=== PATIENT | male | born 1960 | race Two or more races ===

== ENCOUNTER 2017-06-03 08:00 | Outpatient (CLI) | payer OTHER ==
[2016-10-02 12:01] VITALS: BP 146/96
[~2017-06-03 08:00] MED LIST: BENZ100C15 PO; CHLO25TA PO; FURO-69 PO; GUAI600T47 PO; HYDR-971 PO; IPRA3AMP NEB; LEVO500T59 PO; LIDO700A4 TD; LISI-334 PO; MORP30TA3 PO; POTA10TA10 PO; PRED-220 PO; SULF1TAB24 PO; [UNRECOGNIZED DRUG - OTHER]
--- NOTE | 2017-06-03 08:05 | RAD ---
EXAM: CT of the chest without intravenous contrast. HISTORY: Chronic obstructive pulmonary disease, infection. TECHNIQUE: Computed tomography of the chest was performed without intravenous contrast. COMPARISON: 06/13/2016. 12/31/2014. FINDINGS: Images of the upper abdomen reveal least mild hepatomegaly and diffuse hepatic steatosis. Bone windows reveal no suspicious lesions. There are no pathologically enlarged mediastinal or axillary lymph nodes. There is no pleural or pericardial effusion. The heart is not enlarged. 2 uncalcified nodules anteriorly in the right upper lobe on image 41-42 measure 4 mm or less and are stable since at least 12/31/2014. Tiny pleural-based nodule in the right middle lobe on image 60 is stable. A tiny intrafissural lymph node on the left on image 43 is also stable. There are no acute infiltrates. IMPRESSION: 1. No acute infiltrates. 2. Small uncalcified pulmonary nodules have been stable since at least 2014 and this likely benign. 3. Diffuse hepatic steatosis and hepatomegaly. *One or more of the following individualized dose reduction techniques were utilized for this examination: 1. Automated exposure control. 2. Adjustment of the mA and/or kV according to patient size. 3. Use of iterative reconstruction technique.
== END 2017-06-03 10:00 | disposition home or self-care (01) ==
LOC: CT 08:00
PROVIDERS: ATTEND Family Medicine
DX: J44.0 Chronic obstructive pulmonary disease with (acute) lower respiratory infection (principal); K76.0 Fatty (change of) liver, not elsewhere classified; R16.0 Hepatomegaly, not elsewhere classified; R91.8 Other nonspecific abnormal finding of lung field
CPT/HCPCS: 71250

== ENCOUNTER 2017-12-12 17:23 | Observation (INO) | payer OTHER ==
[~2017-12-12] VITALS: Ht 160 cm; Wt 117.9 kg
[~2017-12-12 17:23] MED LIST changes: -TRAM50TA PO
[2017-12-12 18:18] VITALS: BP 132/85
[2017-12-12] MEDS ORDERED: TRAM50TA PO (18:19)
[2017-12-12] MEDS ORDERED: traMADol 50 MG TABLET PO PRN (18:45)
[2017-12-12] MEDS ORDERED: IOHEXOL 300 MG/ML 75 ML VIAL. IV ONE (18:45)
[2017-12-12] MEDS ORDERED: HEPARIN 25,000UTS/500ML PREMIX 500 ML IV PRN ×2 (18:45→19:30)
[2017-12-12] MEDS ORDERED: HYDROcodone/APAP 5/325MG 1 TAB TABLET PO PRN (18:45)
[2017-12-12] MEDS ORDERED: ZOLPIDEM 5 MG TABLET. PO PRN (19:00)
[2017-12-12] MEDS ORDERED: clonazePAM 0.5 MG TABLET PO PRN (19:00)
[2017-12-12] MEDS ORDERED: DEXTROSE 50% 25 GM / 50ML DISP.SYRIN. IV PRN (19:15)
[2017-12-12 19:19] LABS: BASO # 0.1 x10^3/uL (0.0-0.2); BASO % 1 % (0-3); EOS # 0.3 x10^3/uL (0.0-0.7); EOS % 5 % (0-3); HEMATOCRIT 49.6 % (39.0-53.0); HEMOGLOBIN 16.9 g/dL (13.0-17.5); LYMPH # 2.1 x10^3/uL (1.0-4.8); LYMPH % 30 % (24-48); MEAN CORPUSCULAR HEMOGLOBIN 30 pg (25-35); MEAN CORPUSCULAR HGB CONC 34 g/dL (31-37); MEAN CORPUSCULAR VOLUME 89 fL (79-100); MONO # 0.6 x10^3/uL (0.0-1.1); MONO % 8 % (0-9); NEUT # 3.9 x10^3uL (1.8-7.7); NEUT % 56 % (31-73); PLATELET COUNT 158 x10^3/uL (140-400); RED BLOOD COUNT 5.56 x10^6/uL (4.30-5.70); RED CELL DISTRIBUTION WIDTH 13.3 % (11.5-14.5)
[2017-12-12] MEDS ORDERED: HEPARIN for IV BOLUS 10,000 UNIT/10 ML VIAL. IV ONE (19:30)
[2017-12-12] MEDS ORDERED: HEPARIN for IV BOLUS 10,000 UNIT/10 ML VIAL. IV PRN ×2 (19:30)
[2017-12-12 19:34] LABS: ALBUMIN 3.3 g/dL (3.4-5.0); ALBUMIN/GLOBULIN RATIO 0.8 (1.0-1.7); CALCIUM 9.5 mg/dL (8.5-10.1); CREATININE 1.1 mg/dL (0.7-1.3); GFR 69.2; POTASSIUM 4.4 mmol/L (3.5-5.1); TOTAL BILIRUBIN 1.1 mg/dL (0.2-1.0); TOTAL PROTEIN 7.2 g/dL (6.4-8.2)
[2017-12-12] MEDS: POTASSIUM CHLORIDE 20 MEQ TABLET.ER. PO SCH (21:09)
[2017-12-12] MEDS: INSULIN ASPART 300 UNITS/3 ML INSULN.PEN SQ SCH (21:21)
[2017-12-12] MEDS: IPRATRPIUM/ALBUTEROL 0.5/2.5MG 3 ML NEBU. NEB SCH (21:35)
--- NOTE | 2017-12-12 21:42 | EKG ---
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
[2017-12-12 22:13] LABS: BILIRUBIN,URINE NEG (NEG); CLARITY,URINE CLEAR; COLOR,URINE YELLOW; GLUCOSE,URINE >=1000 mg/dL (NEG); UROBILINOGEN,URINE 0.2 mg/dL (0.2 mg/dL)
[2017-12-12 22:14] LABS: BACTERIA,URINE 0 /HPF (0-FEW); NITRITE,URINE NEG (NEG); RBC,URINE RARE /HPF (0-2); SQUAMOUS EPITHELIAL CELL,UR OCC /LPF; WBC,URINE OCC /HPF (0-4)
[2017-12-12 22:34] VITALS: BP 129/81
--- NOTE | 2017-12-12 23:18 | RAD ---
CT angiography chest with contrast HISTORY: Left upper extremity deep venous thrombosis, chest pain. TECHNIQUE: Helical CT imaging of the chest with 3-D MIP reconstructions of the pulmonary arteries to assess for emboli with 100 mL Omnipaque 300 intravenous contrast. FINDINGS: Upper lumbar disc osteophytes contributing to severe spinal canal stenosis at L1-L2 and L2-L3. There is heterogeneous density of contrast mixed with hypodensity at the left brachiocephalic vein this is likely admixture of blood and contrast although nonocclusive thrombosis at this location cannot be excluded. 15 mm nodule posterior of the right thyroid lobe. Heart size normal. Aortic arch calcified plaque. Esophagus is unremarkable. Patent contrast of the SVC and right heart chambers. No central pulmonary artery embolus although the small peripheral lobar pulmonary arteries are under opacified limiting evaluation for small peripheral emboli. No adenopathy in the chest. Right renal midpole 3 cm hypodensity measuring 12 units consistent with a cystic lesion extends outside the [id number]. No pulmonary opacities, pleural effusions or pneumothorax. 3 mm left lower lobe nodule image 40 is stable back to 2016 considered benign. Right middle lobe nodules largest measuring 4 mm stable back to 2016 considered benign. IMPRESSION: 1. No acute process. No pulmonary artery embolus evident. See discussion above. 2. Mixed blood and contrast density at the left brachiocephalic vein as described above. 3. 15 mm nodule posterior of the right thyroid lobe could be an exophytic thyroid nodule or parathyroid adenoma. Exposure: One or more of the following individualized dose reduction techniques were utilized for this examination: 1. Automated exposure control 2. Adjustment of the mA and/or kV according to patient size 3. Use of iterative reconstruction technique Electronically signed by: Paul López MD (12/12/2017 11:15 PM) [facility] [place]
[2017-12-13 03:27] LABS: ALBUMIN/GLOBULIN RATIO 0.8 (1.0-1.7); CREATININE 0.9 mg/dL (0.7-1.3); GFR 87.3; POTASSIUM 3.7 mmol/L (3.5-5.1); TOTAL BILIRUBIN 1.1 mg/dL (0.2-1.0); TOTAL PROTEIN 6.7 g/dL (6.4-8.2)
[2017-12-13 03:53] VITALS: BP 126/85
[2017-12-13 04:05] LABS: BASO # 0.1 x10^3/uL (0.0-0.2); BASO % 1 % (0-3); EOS # 0.4 x10^3/uL (0.0-0.7); EOS % 5 % (0-3); HEMOGLOBIN 16.5 g/dL (13.0-17.5); LYMPH # 3.1 x10^3/uL (1.0-4.8); LYMPH % 42 % (24-48); MEAN CORPUSCULAR HEMOGLOBIN 30 pg (25-35); MEAN CORPUSCULAR HGB CONC 34 g/dL (31-37); MEAN CORPUSCULAR VOLUME 89 fL (79-100); MONO # 0.6 x10^3/uL (0.0-1.1); MONO % 9 % (0-9); NEUT # 3.2 x10^3uL (1.8-7.7); NEUT % 43 % (31-73); PLATELET COUNT 150 x10^3/uL (140-400); RED CELL DISTRIBUTION WIDTH 13.4 % (11.5-14.5); WHITE BLOOD COUNT 7.4 x10^3/uL (4.0-11.0)
[2017-12-13 05:37] VITALS: BP 111/72
[2017-12-13] MEDS: IPRATRPIUM/ALBUTEROL 0.5/2.5MG 3 ML NEBU. NEB SCH ×2 (05:51→12:00)
[2017-12-13] MEDS: POTASSIUM CHLORIDE 20 MEQ TABLET.ER. PO SCH (08:29)
[2017-12-13] MEDS: INSULIN ASPART 300 UNITS/3 ML INSULN.PEN SQ SCH ×2 (08:38→12:22)
[2017-12-13] MEDS ORDERED: FUROSEMIDE 20 MG TABLET PO SCH (09:00)
[2017-12-13] MEDS ORDERED: LISINOPRIL 20 MG TABLET PO SCH (09:00)
[2017-12-13 11:05] VITALS: BP 123/82
--- NOTE | 2017-12-13 12:19 | RAD ---
Bilateral lower extremity venous duplex ultrasound. 12/13/2017 12:15 PM Indication: Patient with recent DVT, left upper extremity. Comparison study: None Discussion: Sonographic evaluation of the deep veins of the bilateral lower extremities was performed. This includes grayscale imaging and color duplex imaging with spectral analysis. No evidence of deep venous thrombosis is seen. Interrogated veins are compressible and demonstrate augmentable blood flow and color Doppler imaging. Impression: No evidence of deep venous thrombosis involving either lower extremity.
--- NOTE | 2017-12-13 14:12 | PDOC2 ---
CONSULT Date of Admission DATE: 12/13/17 TIME: 14:12 Reason for Consult: Chest pain Chief Complaint Chest pain and left upper extremity pain Source: Patient History of Present Illness 57-year-old male presented complaining of left-sided chest pain and upper extremity pain. He was diagnosed with left brachial vein thrombosis and admitted for further management. The chest pain did described appeared to be atypical and not related to exertion or food intake. He denied any orthopnea/PND , palpitations or syncope. Past Medical History Deep venous thrombosis Hypertension COPD Social History Patient quit smoking several years ago and denied any alcohol or drug abuse Current Medications Current Medications Heparin Sodium/ Dextrose 500 ml @ 0 mls/hr CONT PRN IV SEE I/O RECORD; Start at 18:45; Stop 12/12/17 at 19:37; Status DC Furosemide (Lasix) 20 mg DAILY PO Last administered on 12/13/17at 08:30; Start 12/13/17 at 09:00 Acetaminophen/ Hydrocodone Bitart (Lortab 5/325) 1 tab PRN Q6HRS PRN PO PAIN Last administered on 12/12/17at 19:41; Start 12/12/17 at 18:45 Albuterol/ Ipratropium (Duoneb) 3 ml RTQID NEB Last administered on 12/13/17at 12:00; Start 12/12/17 at 20:00 Lisinopril (Prinivil) 20 mg DAILY PO Last administered on 12/13/17 08:31; Start 12/13/17 at 09:00 Tramadol HCl (Ultram) 50 mg PRN Q6HRS PRN PO PAIN Last administered on at 21:09; Start 12/12/17 at 18:45 Potassium Chloride (Klor-Con) 20 meq BID PO Last administered on 12/13/17 08: 29; Start 12/12/17 at 21:00 Iohexol (Omnipaque 300 Mg/ml) 75 ml 1X ONCE IV Last administered on 12/12/17 20:31; Start 12/12/17 at 18:45; Stop 12/12/17 at 18:46; Status DC Zolpidem Tartrate (Ambien) 5 mg PRN QHS PRN PO INSOMNIA, MAY REPEAT IN 1HR; Start 12/12/17 at 19:00 Clonazepam (KlonoPIN) 0.5 mg TID PRN PRN PO ANXIETY / AGITATION Last administered on 12/12/17at 21:09; Start 12/12/17 at 19:00 Insulin Aspart (NovoLOG) 0-7 UNITS QIDACHS SQ Last administered on 12/13/17at 12 :22; Start 12/12/17 at 21:00 Dextrose 12.5 gm PRN Q15MIN PRN IV SEE COMMENTS; Start 12/12/17 at 19:15 Heparin Sodium/ Dextrose 500 ml @ 0 mls/hr CONT PRN IV SEE I/O RECORD Last administered on 12/12/17at 21:02; Start 12/12/17 at 19:30 Heparin Sodium (Porcine) (Heparin Sodium) 8,000 unit 1X ONCE IV Last administered on 12/12/17at 21:00; Start 12/12/17 at 19:30; Stop 12/12/17 at 19:54; Status DC Heparin Sodium (Porcine) (Heparin Sodium) 2,000 unit PRN Q6HRS PRN IV FOLLOW PROTOCOL GUIDELINES; Start 12/12/17 at 19:30 Heparin Sodium (Porcine) (Heparin Sodium) 1,000 unit PRN Q6HRS PRN IV FOLLOW PROTOCOL GUIDELINES; Start 12/12/17 at 19:30 Active Scripts Active [place] 5-325 Tablet (Hydrocodone Bit/Acetaminophen) 1 Each Tablet 1 Tab PO PRN Q6HRS PRN Duoneb 0.5-3(2.5) Mg/3 Ml (Albuterol/Ipratropium) 3 Ml Ampul.neb 3 Ml NEB RTQID Reported Tramadol Hcl (Tramadol HCl) 50 Mg Tablet 50 Mg PO PRN Q6HRS PRN Lasix (Furosemide) 20 Mg Tablet 20 Mg PO DAILY LAST DOSE THIS MORNING NEXT DOSE TOMORROW Potassium Chloride 10 Meq Tablet.er 20 Meq PO BID LAST DOSE THIS MORNING NEXT DOSE TONIGHT Lisinopril 20 Mg Tablet 20 Mg PO DAILY LAST DOSE THIS MORNING NEXT DOSE TOMORROW Allergies: Coded Allergies: oxycodone (Verified Allergy, Intermediate, lost hearing temporaily, ) PSYCHOLOGICAL ROS: No: Hallucinations Eyes: No: Loss of vision HEENT: No: Epistaxis Respiratory: No: Hemoptysis Cardiovascular: yes: Chest Pain Gastrointestinal: No: Melena Neurological: No: Seizures Skin: No: Rash General: Alert, Oriented X3 HEENT: Atraumatic, PERRLA Lungs: Clear to auscultation Heart: Regular rate Abdomen: Soft, No tenderness Extremities: No edema Psych/Mental Status: Mood NL VITALS Vital Signs Date Time Temp Pulse Resp B/P (MAP) Pulse Ox O2 Delivery O2 Flow Rate FiO2 12/13/17 12:00 97 Room Air 12/13/17 11:05 97.9 67 20 123/82 (96) Labs Laboratory Tests Test 12/12/17 19:00 12/12/17 19:55 12/12/17 20:23 12/12/17 20:30 White Blood Count 7.0 x10^3/uL (4.0-11.0) Red Blood Count 5.56 x10^6/uL (4.30-5.70) Hemoglobin 16.9 g/dL (13.0-17.5) Hematocrit 49.6 % (39.0-53.0) Mean Corpuscular Volume 89 fL (79-100) Mean Corpuscular Hemoglobin 30 pg (25-35) Mean Corpuscular Hemoglobin Concent 34 g/dL (31-37) Red Cell Distribution Width 13.3 % (11.5-14.5) Platelet Count 158 x10^3/uL (140-400) Neutrophils (%) (Auto) 56 % (31-73) Lymphocytes (%) (Auto) 30 % (24-48) Monocytes (%) (Auto) 8 % (0-9) Eosinophils (%) (Auto) 5 % (0-3) Basophils (%) (Auto) 1 % (0-3) Neutrophils # (Auto) 3.9 x10^3uL (1.8-7.7) Lymphocytes # (Auto) 2.1 x10^3/uL (1.0-4.8) Monocytes # (Auto) 0.6 x10^3/uL (0.0-1.1) Eosinophils # (Auto) 0.3 x10^3/uL (0.0-0.7) Basophils # (Auto) 0.1 x10^3/uL (0.0-0.2) Sodium Level 135 mmol/L (136-145) Potassium Level 4.4 mmol/L (3.5-5.1) Chloride Level 100 mmol/L (98-107) Carbon Dioxide Level 27 mmol/L (21-32) Anion Gap 8 (6-14) Blood Urea Nitrogen 18 mg/dL (8-26) Creatinine 1.1 mg/dL (0.7-1.3) Estimated GFR (Cockcroft-Gault) 69.2 BUN/Creatinine Ratio 16 (6-20) Glucose Level 495 mg/dL (70-99) Lactic Acid Level 1.8 mmol/L (0.4-2.0) Calcium Level 9.5 mg/dL (8.5-10.1) Total Bilirubin 1.1 mg/dL (0.2-1.0) Aspartate Amino Transf (AST/SGOT) 34 U/L (15-37) Alanine Aminotransferase (ALT/SGPT) 71 U/L (16-63) Alkaline Phosphatase 128 U/L (46-116) Troponin I Quantitative < 0.017 ng/mL (0-0.055) Total Protein 7.2 g/dL (6.4-8.2) Albumin 3.3 g/dL (3.4-5.0) Albumin/Globulin Ratio 0.8 (1.0-1.7) Prothrombin Time 9.9 SEC (9.4-11.4) Prothromb Time International Ratio 1.0 (0.9-1.1) Activated Partial Thromboplast Time 25 SEC (23-33) Glucose (Fingerstick) 368 mg/dL (70-99) Urine Collection Type Unknown Urine Color Yellow Urine Clarity Clear Urine pH 5.5 Urine Specific [place] 1.010 Urine Protein Neg (NEG-TRACE) Urine Glucose (UA) >=1000 mg/dL (NEG) Urine Ketones (Stick) Neg mg/dL (NEG) Urine Blood Trace (NEG) Urine Nitrite Neg (NEG) Urine Bilirubin Neg (NEG) Urine Urobilinogen Dipstick 0.2 mg/dL (0.2 mg/dL) Urine Leukocyte Esterase Neg (NEG) Urine RBC Rare /HPF (0-2) Urine WBC Occ /HPF (0-4) Urine Squamous Epithelial Cells Occ /LPF Urine Bacteria 0 /HPF (0-FEW) Test 12/13/17 03:02 12/13/17 07:35 12/13/17 10:44 12/13/17 11:43 White Blood Count 7.4 x10^3/uL (4.0-11.0) Red Blood Count 5.50 x10^6/uL (4.30-5.70) Hemoglobin 16.5 g/dL (13.0-17.5) Hematocrit 49.0 % (39.0-53.0) Mean Corpuscular Volume 89 fL (79-100) Mean Corpuscular Hemoglobin 30 pg (25-35) Mean Corpuscular Hemoglobin Concent 34 g/dL (31-37) Red Cell Distribution Width 13.4 % (11.5-14.5) Platelet Count 150 x10^3/uL (140-400) Neutrophils (%) (Auto) 43 % (31-73) Lymphocytes (%) (Auto) 42 % (24-48) Monocytes (%) (Auto) 9 % (0-9) Eosinophils (%) (Auto) 5 % (0-3) Basophils (%) (Auto) 1 % (0-3) Neutrophils # (Auto) 3.2 x10^3uL (1.8-7.7) Lymphocytes # (Auto) 3.1 x10^3/uL (1.0-4.8) Monocytes # (Auto) 0.6 x10^3/uL (0.0-1.1) Eosinophils # (Auto) 0.4 x10^3/uL (0.0-0.7) Basophils # (Auto) 0.1 x10^3/uL (0.0-0.2) Activated Partial Thromboplast Time 71 SEC (23-33) 38 SEC (23-33) Sodium Level 137 mmol/L (136-145) Potassium Level 3.7 mmol/L (3.5-5.1) Chloride Level 101 mmol/L (98-107) Carbon Dioxide Level 26 mmol/L (21-32) Anion Gap 10 (6-14) Blood Urea Nitrogen 16 mg/dL (8-26) Creatinine 0.9 mg/dL (0.7-1.3) Estimated GFR (Cockcroft-Gault) 87.3 BUN/Creatinine Ratio 18 (6-20) Glucose Level 295 mg/dL (70-99) Calcium Level 9.0 mg/dL (8.5-10.1) Total Bilirubin 1.1 mg/dL (0.2-1.0) Aspartate Amino Transf (AST/SGOT) 28 U/L (15-37) Alanine Aminotransferase (ALT/SGPT) 64 U/L (16-63) Alkaline Phosphatase 103 U/L (46-116) Total Protein 6.7 g/dL (6.4-8.2) Albumin 3.0 g/dL (3.4-5.0) Albumin/Globulin Ratio 0.8 (1.0-1.7) Glucose (Fingerstick) 249 mg/dL (70-99) 333 mg/dL (70-99) Troponin I Quantitative < 0.017 ng/mL (0-0.055) Assessment/Plan 1. Chest pain with atypical features: Myocardial infarction has been ruled out. 2-D echo in 2016 showed normal LV function. Plan for Lexiscan nuclear stress test as an outpatient. 2. Left upper extremity DVT: Treated per IM 3. Hypertension: Controlled 4. COPD: Continue current management Thank you for your consultation Problems: CHEN MONTENEGRO MD Dec 13, 2017 14:12
[2017-12-14 01:12] LABS: HEMOGLOBIN A1C 12.3 % (4.8-5.6)
== END 2017-12-13 16:08 | disposition home or self-care (01) ==
LOC: INTOOBSV 17:23 → 1 SOUTH 17:23
PROVIDERS: ADMIT Family Medicine; ATTEND Family Medicine
DX: I82.622 Acute embolism and thrombosis of deep veins of left upper extremity (principal); J44.9 Chronic obstructive pulmonary disease, unspecified; R07.89 Other chest pain; I10 Essential (primary) hypertension; R20.2 Paresthesia of skin; R22.32 Localized swelling, mass and lump, left upper limb; Z03.89 Encounter for observation for other suspected diseases and conditions ruled out; Z87.891 Personal history of nicotine dependence
CPT/HCPCS: 36415; 71275; 80053; 81001; 81240; 82947; 83036; 83605; 84484; 85025; 85220; 85610; 85730; 93005; 93970; 94640; 96365; 96366; 96372; 96375; G0378; G0379; J1644; J1815; J7620; Q9967

== ENCOUNTER → 2017-12-12 | Outpatient (CLI) | payer OTHER ==
[2016-10-02 12:01] VITALS: BP 146/96
[~2017-12-12] MED LIST changes: +BENZ-8 PO; -BENZ100C15 PO; +TRAM50TA PO
--- NOTE | 2017-12-12 17:00 | RAD ---
Indication: Left thumb pain and swelling. TECHNIQUE: Grayscale, color Doppler and spectral waveform images of the left upper extremity. COMPARISON: None FINDINGS: The internal jugular vein is compressible and demonstrates evidence of blood flow. The subclavian vein demonstrates evidence of blood flow. The axillary vein demonstrates evidence of blood flow. The cephalic vein is compressible and demonstrates evidence of blood flow. Basilic vein is compressible and demonstrates evidence of blood flow. Brachial vein is partially compressible with internal hypoechoic filling defect and lacks evidence of blood flow. The radial and ulnar veins are compressible. IMPRESSION: Sonographic evidence of DVT in the brachial vein. The results were discussed with Dr. Harkins on 12/12/2017 at 4:50 p.m by vascular technologist. Electronically signed by: Rickie Uribe DO (12/12/2017 4:57 PM) [facility]
== END | disposition home or self-care (01) ==
LOC: US 15:57
PROVIDERS: ATTEND Family Medicine
DX: I82.622 Acute embolism and thrombosis of deep veins of left upper extremity (principal)
CPT/HCPCS: 93971

== ENCOUNTER → 2018-01-12 | Outpatient (CLI) | payer OTHER ==
[2017-12-13 11:05] VITALS: BP 123/82
[~2018-01-12] MED LIST changes: +IOHEXOL 240 MG/ML 50ML VIAL. ONE; +IOHEXOL 240 MG/ML 50ML VIAL. PO ONE; +IOHEXOL 300 MG/ML 75 ML VIAL. IV ONE; +TRAM50TA PO
--- NOTE | 2018-01-12 15:36 | RAD ---
Thyroid ultrasound, 01/12/2018: HISTORY: Thyroid nodule on CT scan The right lobe of the gland measures 3.9 x 1.1 x 1.4 cm while the left lobe of the gland measures 4.1 x 1.2 x 1.2 cm. There is a 1.1 x 1.1 x 0.6 cm nodule in the posterior lateral aspect of the midportion of the right lobe of the gland. It is predominately isoechoic with a hypoechoic rim. Its margins are smooth. There is internal color flow compatible with a solid nodule. It is wider than tall. No calcifications or particularly suspicious features are seen. No other thyroid abnormality is evident. IMPRESSION: Single small right thyroid nodule considered by ACR TI-RADS criteria to be TR 3-mildly suspicious. Sonographic follow-up is not required. Electronically signed by: Adelso Tolbert MD (01/12/2018 3:32 PM) [facility]
--- NOTE | 2018-01-12 16:17 | RAD ---
PQRS Compliance Statement: One or more of the following individualized dose reduction techniques were utilized for this examination: 1. Automated exposure control 2. Adjustment of the mA and/or kV according to patient size 3. Use of iterative reconstruction technique CT abdomen/pelvis with contrast 01/12/2018 3:36 PM INDICATION: Weight loss COMPARISON: None available TECHNIQUE: Multiple axial CT images of the abdomen and pelvis were obtained after the intravenous administration of 75 mL Omnipaque 300. Coronal and sagittal reformats are provided. FINDINGS: Lung bases are clear. Heart size is within normal limits. There is hypoattenuation of the hepatic parenchyma suggestive of hepatic steatosis. No suspicious hepatic mass is visualized. Portal veins are patent. Spleen is nonenlarged. Adrenal glands are normal in appearance. No suspicious pancreatic lesion is identified. Gallbladder is present and contracted. The abdominal aorta is normal in course and caliber. There are no pathologically enlarged lymph nodes in the abdomen and pelvis. There is no abdominal free fluid. There is no free intraperitoneal air. There is a fat-containing umbilical hernia measuring 2.7 cm at the neck. There is a 9 mm hypodense lesion in the lateral midpole the left kidney which is too small to characterize, however statistically favor to represent a simple cyst. There is a 2.6 cm cyst in the posterior midpole of the right kidney. The kidneys enhance symmetrically. There is no hydronephrosis. There are no suspected calculi within the kidneys, ureters or urinary bladder. Mild scattered diverticulosis of the colon. Oral contrast was administered. Opacified bowel loops demonstrate normal mucosal fold pattern. Small and large bowel are normal in caliber. There is no evidence for bowel obstruction. There are no pericolonic inflammatory changes. A normal, nondilated appendix is visualized without adjacent inflammatory changes. The urinary bladder is within normal limits given degree of distention. Prostate and seminal vesicles are normal in appearance. No suspicious pelvic masses are identified. There are no suspicious osseous lesions identified. IMPRESSION: 1. There is diffuse hepatic steatosis. 2. Indeterminate 9 mm hypodense lesion in the lateral midpole the left kidney, which is too small to characterize. Further evaluation with renal ultrasound may be of benefit. 3. Small fat-containing of vocal hernia measuring 2.7 cm at the neck. 4. Mild scattered diverticulosis without adjacent inflammatory changes. Electronically signed by: Ingrid Serna MD (01/12/2018 4:14 PM) [facility]
== END | disposition home or self-care (01) ==
LOC: US 14:27
PROVIDERS: ATTEND Nurse Practitioner Family
DX: E04.1 Nontoxic single thyroid nodule (principal); K76.0 Fatty (change of) liver, not elsewhere classified; K42.9 Umbilical hernia without obstruction or gangrene; R63.4 Abnormal weight loss
CPT/HCPCS: 74177; 76536; Q9966; Q9967

== ENCOUNTER → 2018-03-17 | Outpatient (CLI) | payer OTHER ==
[~2018-03-17] MED LIST changes: -IOHEXOL 240 MG/ML 50ML VIAL. ONE; -IOHEXOL 240 MG/ML 50ML VIAL. PO ONE; -IOHEXOL 300 MG/ML 75 ML VIAL. IV ONE; -IPRA3AMP NEB; +IPRA3AMP29 NEB
--- NOTE | 2018-03-17 13:04 | RAD ---
ABDOMEN LTD History: Right upper quadrant pain, nausea, epigastric pain for 4 days Comparison: None. Findings: Multiple sonographic images of the abdomen are submitted. There is coarsening of the hepatic echotexture. Right lobe of liver measured 19.4 cm longitudinal. Pancreas and inferior vena cava are poorly visualized due to bowel gas and patient's body habitus. There is no significant abnormality of the visualized pancreas and there is segmental visualization of the inferior vena cava. Gallbladder is present without intraluminal abnormality, wall thickening, pericholecystic fluid. Common bile duct is within normal limits at 0.5 cm. Right kidney measured 12.8 x 6.2 x 5.4 cm, no hydronephrosis. There is a hypoechoic lesion of the superior right kidney 2.9 x 3.5 x 2.8 cm, increased through transmission. Impression: 1. Other than likely hepatic steatosis and right renal cyst, no significant abnormality is demonstrated. Electronically signed by: Martin Fleming MD (03/17/2018 1:01 PM) [id number]
== END | disposition home or self-care (01) ==
LOC: US 09:34
PROVIDERS: ATTEND Nurse Practitioner Family
DX: R10.11 Right upper quadrant pain (principal); R11.0 Nausea; R10.13 Epigastric pain; I11.0 Hypertensive heart disease with heart failure; I50.9 Heart failure, unspecified; J44.9 Chronic obstructive pulmonary disease, unspecified; E03.9 Hypothyroidism, unspecified
CPT/HCPCS: 76705

== ENCOUNTER 2018-05-24 15:45 | Emergency (ER) | payer OTHER ==
[~2018-05-24] VITALS: Ht 160 cm; Wt 134.3 kg
[~2018-05-24 15:45] MED LIST changes: +FENO54TA PO; +FURO40TA4 PO; +GUAI-108 PO; +HYDR-2762 PO; +INSU100I11 SQ; +INSU100I30 SQ; +LIRA0.6P SQ; +METH4TAB6; +PRED1TAB PO; +RIVA10TA PO
[2018-05-24] MEDS ORDERED: FLUORESCEIN 1MG EYE STRIP. OD ONE (16:30)
[2018-05-24] MEDS ORDERED: TETRACAINE 0.5% OPHTH SOLUTION 4ML BOTTLE. OD ONE (16:30)
[2018-05-24] MEDS ORDERED: IOHEXOL 300 MG/ML 75 ML VIAL. IV ONE (17:15)
--- NOTE | 2018-05-24 17:56 | RAD ---
Head CT, With and Without Contrast: History: Eye pain history of clots. Technique: Axial images were obtained before and after the administration of 75 cc of IV Isovue-370 contrast. Findings: The archer and white matter appear normal and symmetrical for the patient's age. There is no mass effect, extraaxial fluid collections or hydrocephalus. There is no gross bleed. There is no abnormal enhancement.There is no focal loss of archer-white matter distinction to suggest acute ischemia, i.e. stroke. Impression: No acute findings. Electronically signed by: Guido Beatty III, MD (05/24/2018 5:53 PM) [facility]
--- NOTE | 2018-05-24 18:08 | PHYS DOC ---
Past History Past Medical History: Diabetes, DVT, High Cholesterol, Hypertension Past Surgical History: No Surgical History Alcohol Use: None Drug Use: None Adult General Chief Complaint Chief Complaint: HEADACHE HPI HPI 57 yo male presents with left eye pain. The patient states that he has had a sharp pressure sensation in the left eye that started 3 days ago. It was mild but has been increasing today. Today it is very painful he rates it an 8 out of 10. He does have times where it subsides, but then comes back. He denies any trauma or chance of foreign body. He has never had anything like this before. He denies nausea, vomiting, fever, chills. He does have a headache on that side of his head. His PCP advised to come to the emergency room as he slashed she was very concerned. Review of Systems Review of Systems Constitutional: Denies fever or chills [] Eyes: Left eye pain[] HENT: Denies nasal congestion or sore throat [] Respiratory: Denies cough or shortness of breath [] Cardiovascular: No additional information not addressed in HPI [] GI: Denies abdominal pain, nausea, vomiting, bloody stools or diarrhea [] : Denies dysuria or hematuria [] Musculoskeletal: Denies back pain or joint pain [] Integument: Denies rash or skin lesions [] Neurologic: Denies headache, focal weakness or sensory changes [] Endocrine: Denies polyuria or polydipsia [] All other systems were reviewed and found to be within normal limits, except as documented in this note. Current Medications Current Medications Current Medications Medications (Trade) Dose Ordered Sig/Tess Start Time Stop Time Status Last Admin Dose Admin Fluorescein Sodium (Ful-Delilah 1mg) 1 strip 1X ONCE 05/24/18 16:30 05/24/18 16:32 DC 05/24/18 16:30 1 STRIP Iohexol (Omnipaque 300 Mg/ml) 75 ml 1X ONCE 05/24/18 17:15 05/24/18 17:16 DC 05/24/18 17:28 75 ML Tetracaine HCl (Tetracaine) 1 drop 1X ONCE 05/24/18 16:30 05/24/18 16:32 DC 05/24/18 16:30 1 DROP Allergies Allergies Allergies Coded Allergies Type Severity Reaction Last Updated Verified oxycodone Allergy Intermediate lost hearing temporaily 12/30/16 Yes Physical Exam Physical Exam Constitutional: Well developed, well nourished, no acute distress, non-toxic appearance. [] HENT: Normocephalic, atraumatic, bilateral external ears normal, oropharynx moist, no oral exudates, nose normal. [] Eyes: PERRLA, EOMI, conjunctiva normal, no discharge. Funduscopic exam was limited with no pupil dilation, but there were no abnormal findings.[] Neck: Normal range of motion, no tenderness, supple, no stridor. [] Cardiovascular:Heart rate regular rhythm, no murmur [] Lungs & Thorax: Bilateral breath sounds clear to auscultation [] Abdomen: Bowel sounds normal, soft, no tenderness, no masses, no pulsatile masses. [] Skin: Warm, dry, no erythema, no rash. [] Back: No tenderness, no CVA tenderness. [] Extremities: No tenderness, no cyanosis, no clubbing, ROM intact, no edema. [] Neurologic: Alert and oriented X 3, normal motor function, normal sensory function, no focal deficits noted. [] Psychologic: Affect normal, judgement normal, mood normal. [] Current Patient Data Vital Signs Vital Signs Date Time Temp Pulse Resp B/P (MAP) Pulse Ox O2 Delivery O2 Flow Rate FiO2 05/24/18 17:16 89 18 153/65 (94) 98 Room Air 05/24/18 16:03 98.4 EKG EKG [] Radiology/Procedures Radiology/Procedures [] Impressions: Head CT, With and Without Contrast: History: Eye pain history of clots. Technique: Axial images were obtained before and after the administration of 75 cc of IV Isovue-370 contrast. Findings: The archer and white matter appear normal and symmetrical for the patient's age. There is no mass effect, extraaxial fluid collections or hydrocephalus. There is no gross bleed. There is no abnormal enhancement.There is no focal loss of archer-white matter distinction to suggest acute ischemia, i.e. stroke. Impression: No acute findings. Electronically signed by: Sonia Funk III, MD (05/24/2018 5:53 PM) [facility] DICTATED AND SIGNED BY: SONIA FUNK III, MD DATE: 05/24/18 [id number] CC: KRISSY LE DO; BILLY BENITEZ MD Course & Med Decision Making Course & Med Decision Making Pertinent Labs and Imaging studies reviewed. (See chart for details) His head CT is unremarkable. The fluoresceins stain of his cornea did not reveal any foreign bodies or abrasions. His jody pen exam showed pressure between 10 and 15. The patient continues to have pain. I will treat his pain with oral medication. I have also advised that he call an opthamologist for follow-up as soon as possible. I will provide contact information for Dr. Godfrey and Dr. Doherty. The patient will be discharged with [place] 5/325 for pain. He is stable for discharge at this time. [] Dragon Disclaimer Dragon Disclaimer This electronic medical record was generated, in whole or in part, using a voice recognition dictation system. Departure Departure: Referrals: BILLY BENITEZ MD (PCP) Scripts Hydrocodone Bit/Acetaminophen ([place] 5-325 TABLET) 1 Each Tablet 1 TAB PO PRN Q6HRS PRN for PAIN, #10 TAB 0 Refills Prov: KRISSY LE DO 05/24/18 KRISSY LE DO May 24, 2018 18:08
[2018-05-24] MEDS ORDERED: HYDR-971 PO (18:23)
[2018-05-24 18:26] VITALS: BP 145/78
[2018-05-24] MEDS ORDERED: HYDROcodone/APAP 5/325MG 1 TAB TABLET PO ONE (18:30)
== END 2018-05-24 18:35 | disposition home or self-care (01) ==
LOC: ER 15:45
DX: H57.12 Ocular pain, left eye (principal); R51 Headache; E11.9 Type 2 diabetes mellitus without complications; I10 Essential (primary) hypertension; E78.00 Pure hypercholesterolemia, unspecified; Z86.718 Personal history of other venous thrombosis and embolism; Z88.5 Allergy status to narcotic agent
CPT/HCPCS: 70470; 99284; Q9967

== ENCOUNTER → 2018-07-11 | Outpatient (CLI) | payer OTHER ==
--- NOTE | 2018-07-11 13:28 | RAD ---
Right lower extremity venous Doppler dated 07/11/2018. No comparison available. Clinical data indication: Knee pain. History of pulmonary embolus. FINDINGS: Grayscale, color-flow and spectral waveform analysis performed to include the deep venous system of the right lower extremity. Normal compressibility, phasicity and augmentation of flow throughout. No filling defects are seen. There is a small pocket of fluid along the lateral aspect of the knee the measures up to 10 mm in size, nonspecific. IMPRESSION: 1. No evidence of right lower extremity deep vein thrombosis. Electronically signed by: Bowen Chicas MD (07/11/2018 1:25 PM) [facility]
== END | disposition home or self-care (01) ==
LOC: US 10:31
PROVIDERS: ATTEND Nurse Practitioner Family
DX: M79.661 Pain in right lower leg (principal); M79.604 Pain in right leg; J44.9 Chronic obstructive pulmonary disease, unspecified; Z86.711 Personal history of pulmonary embolism
CPT/HCPCS: 93971

== ENCOUNTER 2019-01-12 20:51 | Emergency (ER) | payer OTHER ==
[~2019-01-12] VITALS: Ht 160 cm; Wt 126.1 kg
[~2019-01-12 20:51] MED LIST changes: -CHLO25TA PO; +CHLO25TA9 PO; -HYDR-2762 PO; +HYDR-2765 PO; +HYDR-3165 PO; -HYDR-971 PO
[2019-01-12] MEDS ORDERED: diclofenac (21:03)
[2019-01-12] MEDS ORDERED: [UNRECOGNIZED DRUG - OTHER] (21:06)
[2019-01-12] MEDS ORDERED: ALBU2.5V8 INH (21:06)
[2019-01-12] MEDS ORDERED: vitaminD3 PO (21:06)
--- NOTE | 2019-01-12 21:28 | PHYS DOC ---
Past History Past Medical History: Diabetes, DVT, High Cholesterol, Hypertension Past Surgical History: No Surgical History Alcohol Use: None Drug Use: None Adult General Chief Complaint Chief Complaint: NOSEBLEED [facility] HPI 58-year-old male presents via EMS with nosebleed. The patient began have a nosebleed around 2019. He states that it took him about 30 minutes to get the nosebleed to stop. Patient had some coughing of blood and is unsure if that was coming from his nose or deeper. The patient is on Xarelto due to history of DVTs and PE in the past. Most recent was one year ago. The patient did not apply direct pressure to the nose. He mostly just used tissues to absorb the bleeding underneath his nose. He did not use Afrin or another vasoconstrictor. Bleeding was stopped prior to EMS arrival. He's had no further bleeding since that time. The patient has not had a nosebleed this bad in the past. He's not sure is ever had a nosebleed on Xarelto. He is not feeling lightheaded or dizzy. He denies other concerns or complaints. Review of Systems Review of Systems Constitutional: Denies fever or chills [] Eyes: Denies change in visual acuity, redness, or eye pain [] HENT: Denies nasal congestion or sore throat. Nosebleed[] Respiratory: Denies cough or shortness of breath [] Cardiovascular: No additional information not addressed in HPI [] GI: Denies abdominal pain, nausea, vomiting, bloody stools or diarrhea [] : Denies dysuria or hematuria [] Musculoskeletal: Denies back pain or joint pain [] Integument: Denies rash or skin lesions [] Neurologic: Denies headache, focal weakness or sensory changes [] Endocrine: Denies polyuria or polydipsia [] All other systems were reviewed and found to be within normal limits, except as documented in this note. Allergies Allergies Allergies Coded Allergies Type Severity Reaction Last Updated Verified oxycodone Allergy Intermediate lost hearing temporaily 09/03/16 Yes Physical Exam Physical Exam Constitutional: Well developed, morbidly obese, well nourished, no acute distress, non-toxic appearance. [] HENT: Normocephalic, atraumatic, bilateral external ears normal, oropharynx moist, no oral exudates, nose with evidence of recent bleed in the left naris. Fresh clotted area of the left naris against the septum, anterior.[] Eyes: PERRLA, EOMI, conjunctiva normal, no discharge. [] Neck: Normal range of motion, no tenderness, supple, no stridor. [] Cardiovascular:Heart rate regular rhythm, no murmur [] Lungs & Thorax: Bilateral breath sounds clear to auscultation [] Abdomen: Bowel sounds normal, soft, no tenderness, no masses, no pulsatile masses. [] Skin: Warm, dry, no erythema, no rash. [] Back: No tenderness, no CVA tenderness. [] Extremities: No tenderness, no cyanosis, no clubbing, ROM intact, no edema. [] Neurologic: Alert and oriented X 3, normal motor function, normal sensory function, no focal deficits noted. [] Psychologic: Affect normal, judgement normal, mood normal. [] Current Patient Data Vital Signs Vital Signs Date Time Temp Pulse Resp B/P (MAP) Pulse Ox O2 Delivery O2 Flow Rate FiO2 01/12/19 20:55 98.8 103 22 127/94 (105) 95 Room Air EKG EKG [] Radiology/Procedures Radiology/Procedures [] Impressions: EXAM: Chest, 2 views. HISTORY: Cough. COMPARISON: 11/11/2017 FINDINGS: 2 views the chest are obtained. There is segmental increased lower lobe interstitial opacity likely due to atelectasis. There is no consolidation, pleural effusion or pneumothorax. The heart is normal in size. IMPRESSION: Suspected bilateral lower lobe atelectasis. The possibility of lower lobe interstitial infiltrate is not excluded. Electronically signed by: Dona More MD (01/12/2019 9:39 PM) [facility] DICTATED AND SIGNED BY: DONA MORE MD DATE: 01/12/192138 CC: KRISSY LE DO; BILLY BENITEZ MD ~ Course & Med Decision Making Course & Med Decision Making Pertinent Labs and Imaging studies reviewed. (See chart for details) The patient's labs are remarkable for an elevated glucose and a creatinine of 1.4. His are not concerning for the patient's chief complaint. His hemoglobin is normal. The patient's chest x-ray does show some lower lobe atelectasis and cannot exclude interstitial infiltrate. The patient's coughing has calmed down with this time. I believe infiltrate is unlikely. His vitals are normal and his temperature is normal. He is stable for discharge at this time. [] Dragon Disclaimer Dragon Disclaimer This electronic medical record was generated, in whole or in part, using a voice recognition dictation system. Departure Departure: Impression: Primary Impression: Left-sided nosebleed Disposition: HOME, SELF-CARE Condition: STABLE Referrals: BILLY BENITEZ MD (PCP) Patient Instructions: Nosebleed, [id number] KRISSY LE DO January 12, 2019 21:28
[2019-01-12 21:41] LABS: BASO # 0.1 x10^3/uL (0.0-0.2); BASO % 1 % (0-3); EOS # 0.3 x10^3/uL (0.0-0.7); EOS % 3 % (0-3); HEMATOCRIT 48.8 % (39.0-53.0); HEMOGLOBIN 16.5 g/dL (13.0-17.5); LYMPH # 2.1 x10^3/uL (1.0-4.8); LYMPH % 25 % (24-48); MEAN CORPUSCULAR HEMOGLOBIN 30 pg (25-35); MEAN CORPUSCULAR HGB CONC 34 g/dL (31-37); MEAN CORPUSCULAR VOLUME 89 fL (79-100); MONO # 0.8 x10^3/uL (0.0-1.1); MONO % 9 % (0-9); NEUT # 5.2 x10^3uL (1.8-7.7); NEUT % 62 % (31-73); PLATELET COUNT 210 x10^3/uL (140-400); RED BLOOD COUNT 5.48 x10^6/uL (4.30-5.70); RED CELL DISTRIBUTION WIDTH 14.4 % (11.5-14.5); WHITE BLOOD COUNT 8.3 x10^3/uL (4.0-11.0)
--- NOTE | 2019-01-12 21:41 | RAD ---
EXAM: Chest, 2 views. HISTORY: Cough. COMPARISON: 11/11/2017 FINDINGS: 2 views the chest are obtained. There is segmental increased lower lobe interstitial opacity likely due to atelectasis. There is no consolidation, pleural effusion or pneumothorax. The heart is normal in size. IMPRESSION: Suspected bilateral lower lobe atelectasis. The possibility of lower lobe interstitial infiltrate is not excluded. Electronically signed by: Dona More MD (01/12/2019 9:39 PM) [id number]
[2019-01-12 21:56] LABS: ALBUMIN 3.6 g/dL (3.4-5.0); ALBUMIN/GLOBULIN RATIO 0.9 (1.0-1.7); CALCIUM 9.2 mg/dL (8.5-10.1); CREATININE 1.4 mg/dL (0.7-1.3); GFR 52.2; POTASSIUM 3.5 mmol/L (3.5-5.1); TOTAL BILIRUBIN 1.1 mg/dL (0.2-1.0); TOTAL PROTEIN 7.8 g/dL (6.4-8.2)
[2019-01-12 22:00] VITALS: BP 128/89
[2019-02-13] MEDS ORDERED: MONT10TA9 PO (20:12)
== END 2019-01-12 22:12 | disposition home or self-care (01) ==
LOC: ER 20:51
DX: R04.0 Epistaxis (principal); E11.9 Type 2 diabetes mellitus without complications; E78.00 Pure hypercholesterolemia, unspecified; I10 Essential (primary) hypertension; Z86.718 Personal history of other venous thrombosis and embolism; Z86.711 Personal history of pulmonary embolism; Z88.5 Allergy status to narcotic agent
CPT/HCPCS: 36415; 71046; 80053; 85025; 85610; 85730; 99285

== ENCOUNTER 2019-02-13 12:46 | Observation (INO) | payer OTHER ==
[~2019-02-13] VITALS: Ht 160 cm; Wt 126.7 kg
[~2019-02-13 12:46] MED LIST changes: +ALBU2.5V8 INH; +[UNRECOGNIZED DRUG - OTHER]; +diclofenac; +vitaminD3 PO
[2019-02-13] MEDS ORDERED: MECLIZINE 12.5 MG TABLET. PO PRN (13:00)
[2019-02-13] MEDS ORDERED: ONDANSETRON PF 4 MG/2 ML VIAL. IV ONE (13:00)
[2019-02-13] MEDS ORDERED: IV NORMAL SALINE 1,000ML 1,000 ML IV ONE (13:00)
[2019-02-13 13:10] LABS: BASO # 0.1 x10^3/uL (0.0-0.2); BASO % 1 % (0-3); EOS # 0.3 x10^3/uL (0.0-0.7); EOS % 3 % (0-3); HEMATOCRIT 52.8 % (39.0-53.0); HEMOGLOBIN 17.7 g/dL (13.0-17.5); LYMPH # 3.2 x10^3/uL (1.0-4.8); LYMPH % 32 % (24-48); MEAN CORPUSCULAR HEMOGLOBIN 30 pg (25-35); MEAN CORPUSCULAR HGB CONC 34 g/dL (31-37); MEAN CORPUSCULAR VOLUME 90 fL (79-100); MONO # 1.1 x10^3/uL (0.0-1.1); MONO % 11 % (0-9); NEUT # 5.3 x10^3uL (1.8-7.7); NEUT % 53 % (31-73); PLATELET COUNT 215 x10^3/uL (140-400); RED BLOOD COUNT 5.85 x10^6/uL (4.30-5.70); RED CELL DISTRIBUTION WIDTH 14.4 % (11.5-14.5); WHITE BLOOD COUNT 10.1 x10^3/uL (4.0-11.0)
--- NOTE | 2019-02-13 13:21 | PHYS DOC ---
Past History Past Medical History: Anxiety, COPD, Diabetes, DVT, High Cholesterol, Hypertension, Lung Disease Past Surgical History: No Surgical History Alcohol Use: None Drug Use: None Adult General Chief Complaint Chief Complaint: DIZZY/LIGHT HEADED HPI HPI Patient is a 58-year-old male presents with dizziness, nausea, vomiting that started approximately 2 hours prior to arrival. And had been using floor stripper in an enclosed space prior to this happening. Denies any chest pain or difficulty breathing. Moving his head makes the symptoms worse. No blood in the emesis. No diarrhea. Holding still makes symptoms a little bit better but does not resolve them. Symptoms are moderate to severe in intensity.[] Review of Systems Review of Systems Constitutional: Denies fever or chills [] Eyes: Denies change in visual acuity, redness, or eye pain [] HENT: Denies nasal congestion or sore throat [] Respiratory: Denies cough or shortness of breath [] Cardiovascular: No chest pain or palpitations[] GI: Denies abdominal pain, nausea, vomiting, bloody stools or diarrhea [] : Denies dysuria or hematuria [] Musculoskeletal: Denies back pain or joint pain [] Integument: Denies rash or skin lesions [] Neurologic: Denies headache, focal weakness or sensory changes [] Endocrine: Denies polyuria or polydipsia [] All other systems were reviewed and found to be within normal limits, except as documented in this note. Current Medications Current Medications Current Medications Medications (Trade) Dose Ordered Sig/Tess Start Time Stop Time Status Last Admin Dose Admin Meclizine HCl (Antivert) 25 mg PRN Q6HRS PRN 02/13/19 13:00 02/13/19 13:14 25 MG Ondansetron HCl (Zofran) 4 mg 1X ONCE 02/13/19 13:00 02/13/19 13:01 DC 02/13/19 13:13 4 MG Sodium Chloride 1,000 ml @ 1,000 mls/hr 1X ONCE 02/13/19 13:00 02/13/19 13:59 02/13/19 13:13 1,000 MLS/HR Allergies Allergies Allergies Coded Allergies Type Severity Reaction Last Updated Verified oxycodone Allergy Intermediate lost hearing temporaily 09/03/16 Yes Physical Exam Physical Exam Constitutional: Well developed, well nourished, moderate discomfort, increased respiratory rate, non-toxic appearance. [] HENT: Normocephalic, atraumatic, bilateral external ears normal, oropharynx moist, no oral exudates, nose normal. [] Eyes: PERRLA, EOMI, conjunctiva normal, no discharge. [] Neck: Normal range of motion, no tenderness, supple, no stridor. [] Cardiovascular:Heart rate regular rhythm, no murmur [] Lungs & Thorax: Bilateral breath sounds clear to auscultation [] Abdomen: Bowel sounds normal, soft, no tenderness, no masses, no pulsatile masses. [] Skin: Warm, dry, no erythema, no rash. [] Back: No tenderness, no CVA tenderness. [] Extremities: No tenderness, no cyanosis, no clubbing, ROM intact, no edema. [] Neurologic: Alert and oriented X 3, normal motor function, normal sensory function, no focal deficits noted. Nystagmus is present with fast beat to the left, this extinguishes within 30 seconds with holding still [] Psychologic: Affect anxious, judgement normal, mood normal. [] Current Patient Data Vital Signs Vital Signs Date Time Temp Pulse Resp B/P (MAP) Pulse Ox O2 Delivery O2 Flow Rate FiO2 02/13/19 12:56 97.8 76 18 91 Room Air 02/13/19 12:50 144/97 (113) Lab Results Laboratory Tests Test 02/13/19 12:50 02/13/19 12:54 White Blood Count 10.1 x10^3/uL (4.0-11.0) Red Blood Count 5.85 x10^6/uL (4.30-5.70) H Hemoglobin 17.7 g/dL (13.0-17.5) H Hematocrit 52.8 % (39.0-53.0) Mean Corpuscular Volume 90 fL (79-100) Mean Corpuscular Hemoglobin 30 pg (25-35) Mean Corpuscular Hemoglobin Concent 34 g/dL (31-37) Red Cell Distribution Width 14.4 % (11.5-14.5) Platelet Count 215 x10^3/uL (140-400) Neutrophils (%) (Auto) 53 % (31-73) Lymphocytes (%) (Auto) 32 % (24-48) Monocytes (%) (Auto) 11 % (0-9) H Eosinophils (%) (Auto) 3 % (0-3) Basophils (%) (Auto) 1 % (0-3) Neutrophils # (Auto) 5.3 x10^3uL (1.8-7.7) Lymphocytes # (Auto) 3.2 x10^3/uL (1.0-4.8) Monocytes # (Auto) 1.1 x10^3/uL (0.0-1.1) Eosinophils # (Auto) 0.3 x10^3/uL (0.0-0.7) Basophils # (Auto) 0.1 x10^3/uL (0.0-0.2) Glucose (Fingerstick) 225 mg/dL (70-99) H EKG EKG EKG shows a sinus rhythm at 76 bpm, left axis at -28, QTC 439 ms, no ST elevation. No old EKG available for comparison. Interpreted by me at 1253[] Radiology/Procedures Radiology/Procedures EXAM: CT Head without IV contrast CLINICAL HISTORY: Dizziness and weakness COMPARISON: 05/24/2018 TECHNIQUE: Routine CT of the head without contrast. Soft tissues and bone windows were reviewed. PQRS compliance statement - One or more of the following individualized dose reduction techniques were utilized for this study: 1. Automated exposure control 2. Adjustment of the mA and/or kV according to patient size 3. Use of iterative reconstruction technique FINDINGS: There is no evidence of hemorrhage, mass or extra-axial fluid collection. Felton-white differentiation is maintained with no evidence of edema. There is no mass effect or shift of the intracranial structures. The ventricles, basilar cisterns and cortical sulci are normal in size and configuration for the patients stated age. The cerebellum and brainstem are unremarkable. The calvarium demonstrates no evidence of fracture or focal lesion. Mild cortical offset left nasal bone may represent age-indeterminate nasal bone fracture. There is normal aeration of the visualized paranasal sinuses and mastoid air cells. The visualized portions of the orbits are normal. IMPRESSION: 1. No evidence for acute intracranial process. 2. Mild cortical offset left nasal bone may represent age-indeterminate nasal bone fracture.[] Course & Med Decision Making Course & Med Decision Making Pertinent Labs and Imaging studies reviewed. (See chart for details) ED course: Patient arrived, was placed in bed, and tolerated exam well. He was transported to and from [place] with any complications. He was given IV fluids, antiemetics, and medicine to help with vertigo. The antivertigo medicine did not significantly improve his symptoms so he was given additional dose of IV benzodiazepines which again did not significantly improve his symptoms. We were able to obtain the material safety data sheet for the product that was being used when stripping the floors when the symptoms started. The product name is altered stripping extreme. It contains ethylene glycol butyl ether, monoeth anolamine, nonylphenol ethoxylate. Discussion with poison control reveals that dizziness and vertigo symptoms can happen with exposure to these chemicals. Some additional issues include cardiac dysrhythmias, renal or hepatic toxicity. Patient had been on the monitor and had no cardiac dysrhythmias noted during his emergency department stay. Due to the continued symptomatology and patient with impaired renal function at baseline, consultation was made with his primary care physician who graciously admitted him. He was admitted in improved condition with all questions answered. Medical decision making: Patient with dizziness most likely is result of exposure to the stripper and chemicals noted above. This should clear within 24 hours according to poison control. Symptoms did not significantly improve despite the interventions that were provided in the emergency department. Due to this he is being admitted. He is also being admitted for better blood sugar management as well as follow up because of the risk of renal or hepatic toxicity from the chemicals that he was exposed to.[] Dragon Disclaimer Dragon Disclaimer This electronic medical record was generated, in whole or in part, using a voice recognition dictation system. 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
[2019-02-13 13:26] LABS: ALBUMIN 3.9 g/dL (3.4-5.0); CALCIUM 9.5 mg/dL (8.5-10.1); CREATININE 1.5 mg/dL (0.7-1.3); GFR 48.2; MAGNESIUM 1.8 mg/dL (1.8-2.4); POTASSIUM 3.6 mmol/L (3.5-5.1); TOTAL BILIRUBIN 1.5 mg/dL (0.2-1.0); TOTAL PROTEIN 7.9 g/dL (6.4-8.2)
--- NOTE | 2019-02-13 14:12 | RAD ---
EXAM: CT Head without IV contrast CLINICAL HISTORY: Dizziness and weakness COMPARISON: 05/24/2018 TECHNIQUE: Routine CT of the head without contrast. Soft tissues and bone windows were reviewed. PQRS compliance statement - One or more of the following individualized dose reduction techniques were utilized for this study: 1. Automated exposure control 2. Adjustment of the mA and/or kV according to patient size 3. Use of iterative reconstruction technique FINDINGS: There is no evidence of hemorrhage, mass or extra-axial fluid collection. Felton-white differentiation is maintained with no evidence of edema. There is no mass effect or shift of the intracranial structures. The ventricles, basilar cisterns and cortical sulci are normal in size and configuration for the patients stated age. The cerebellum and brainstem are unremarkable. The calvarium demonstrates no evidence of fracture or focal lesion. Mild cortical offset left nasal bone may represent age-indeterminate nasal bone fracture. There is normal aeration of the visualized paranasal sinuses and mastoid air cells. The visualized portions of the orbits are normal. IMPRESSION: 1. No evidence for acute intracranial process. 2. Mild cortical offset left nasal bone may represent age-indeterminate nasal bone fracture. Electronically signed by: Martinez Tavares MD (02/13/2019 2:09 PM) [id number]
[2019-02-13] MEDS: IV NORMAL SALINE 1,000ML 1,000 ML IV SCH (15:35)
[2019-02-13] MEDS ORDERED: ONDANSETRON PF 4 MG/2 ML VIAL. IV PRN (15:45)
[2019-02-13 17:11] VITALS: BP 156/99
[2019-02-13 17:28] LABS: BILIRUBIN,URINE NEG (NEG); CLARITY,URINE CLEAR; COLOR,URINE AMBER; GLUCOSE,URINE 250 mg/dL (NEG); NITRITE,URINE NEG (NEG); RBC,URINE 0 /HPF (0-2); UROBILINOGEN,URINE 0.2 mg/dL (0.2 mg/dL); WBC,URINE 0 /HPF (0-4)
[2019-02-13 17:29] LABS: BACTERIA,URINE 0 /HPF (0-FEW); SQUAMOUS EPITHELIAL CELL,UR OCC /LPF
[2019-02-13 17:38] LABS: AMPHETAMINE/METHAMPHETAMINE NEG (NEG); BARBITURATES NEG (NEG); BENZODIAZEPINES NEG (NEG); CANNABINOIDS NEG (NEG); COCAINE NEG (NEG); METHADONE NEG (NEG); OPIATES NEG (NEG); PHENCYCLIDINE NEG (NEG)
[2019-02-13] MEDS ORDERED: ALBUTEROL SULFATE 2.5 MG/3 ML NEBU. INH PRN (18:15)
--- NOTE | 2019-02-13 18:17 | NUR ---
The patient, DANA ALSTON, 58 y/o, M admitted by BILLY BENITEZ MD, was given written information regarding hospital policies, unit procedures and contact persons. Valuables were checked and left at bedside with patient. Patient is a 58 yom admitted from ED with dx of syncope, and nausea after a pro longed chemical exposure at his job, per patient statement. Patient is a FULL Code. Patient is alert and oriented x 4, speech is clear, able to make wants and needs known, able to verbalize understanding of others. Cooperative with staff on all cares. No negative moods or behaviors observed. Patient states "I am slightly dizzy, but way better than what i was. 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 Patient has a medical history of DM, COPD, HTN, and history of DVT is arms, legs, and lungs. Patient is ACHS with accuchecks. Lungs are slight crackley in LLB, slightly diminished in RLB, no cough present, pt states SOA was present when exposed to chemical at job this am. Abdomen is obese, non tender, active bowel sounds in all 4 quadrants, BM - 02/13/19, HRR S1S2 auscultated, skin is in tact. BL pedal pulses are strong +2, BLE cold upon palpation. Negative for Harrison's sign in BLE. Patient is resting in room with call light and fresh fluids with in reach.
[2019-02-13 19:21] VITALS: BP 120/68
[2019-02-13] MEDS ORDERED: IPRATRPIUM/ALBUTEROL 0.5/2.5MG 3 ML NEBU. NEB SCH (20:00)
[2019-02-13] MEDS ORDERED: DICL75TA PO (20:12)
[2019-02-13] MEDS ORDERED: TEST200V3 IM (20:12)
[2019-02-13] MEDS ORDERED: MULT1TAB52 PO (20:12)
[2019-02-13] MEDS ORDERED: MONT10TA80 PO (20:12)
[2019-02-13] MEDS: IPRATRPIUM/ALBUTEROL 0.5/2.5MG 3 ML NEBU. NEB SCH (20:40)
[2019-02-13] MEDS ORDERED: INSULIN GLARGINE 300 UNITS/3 ML INSULN.PEN. SQ SCH (21:00)
[2019-02-13] MEDS: POTASSIUM CHLORIDE 20 MEQ TABLET.ER. PO SCH (21:08)
[2019-02-13 23:27] VITALS: BP 116/72
[2019-02-14] MEDS: IV NORMAL SALINE 1,000ML 1,000 ML IV SCH ×2 (00:19→05:13)
[2019-02-14] MEDS: IPRATRPIUM/ALBUTEROL 0.5/2.5MG 3 ML NEBU. NEB SCH ×2 (04:37→09:44)
[2019-02-14 05:14] VITALS: BP 110/67
[2019-02-14 06:43] LABS: BASO # 0.1 x10^3/uL (0.0-0.2); BASO % 1 % (0-3); EOS # 0.2 x10^3/uL (0.0-0.7); EOS % 3 % (0-3); HEMATOCRIT 48.3 % (39.0-53.0); HEMOGLOBIN 15.9 g/dL (13.0-17.5); LYMPH # 2.1 x10^3/uL (1.0-4.8); LYMPH % 25 % (24-48); MEAN CORPUSCULAR HEMOGLOBIN 30 pg (25-35); MEAN CORPUSCULAR HGB CONC 33 g/dL (31-37); MEAN CORPUSCULAR VOLUME 91 fL (79-100); MONO # 0.8 x10^3/uL (0.0-1.1); MONO % 9 % (0-9); NEUT # 5.2 x10^3uL (1.8-7.7); NEUT % 62 % (31-73); PLATELET COUNT 183 x10^3/uL (140-400); RED BLOOD COUNT 5.29 x10^6/uL (4.30-5.70); RED CELL DISTRIBUTION WIDTH 14.6 % (11.5-14.5); WHITE BLOOD COUNT 8.4 x10^3/uL (4.0-11.0)
--- NOTE | 2019-02-14 06:44 | RAD ---
Chest PA and lateral: Reason for examination: Short of breath with cough and congestion. Comparison is made to previous study dated 01/12/2019. The heart size is normal. Mediastinum is unremarkable. Lung newsome show no acute infiltrates or pleural effusions. No acute bony abnormalities are seen. Impression: No acute cardiopulmonary disease. Electronically signed by: Elicia Falcon MD (02/14/2019 6:41 AM) [facility]
[2019-02-14 06:50] LABS: ALBUMIN 3.2 g/dL (3.4-5.0); ALBUMIN/GLOBULIN RATIO 0.9 (1.0-1.7); CALCIUM 8.8 mg/dL (8.5-10.1); CREATININE 1.1 mg/dL (0.7-1.3); POTASSIUM 4.3 mmol/L (3.5-5.1); TOTAL BILIRUBIN 1.2 mg/dL (0.2-1.0); TOTAL PROTEIN 6.7 g/dL (6.4-8.2)
[2019-02-14] MEDS: POTASSIUM CHLORIDE 20 MEQ TABLET.ER. PO SCH (07:54)
[2019-02-14 07:55] VITALS: BP 110/67
[2019-02-14] MEDS ORDERED: CHOLECALCIFEROL (VITAMIN D3) 1,000 UNIT TABLET PO SCH (09:00)
[2019-02-14] MEDS ORDERED: RIVAROXABAN 10 MG TABLET. PO SCH (09:00)
[2019-02-14] MEDS ORDERED: MULTIVITAMIN with MINERAL TABLET. PO SCH (09:00)
[2019-02-14] MEDS ORDERED: FENOFIBRATE NANOCRYSTALLIZED 48 MG TABLET PO SCH (09:00)
[2019-02-14] MEDS ORDERED: DICLOFENAC SODIUM 25 MG TABLET.DR PO SCH (09:00)
[2019-02-14] MEDS ORDERED: FUROSEMIDE 40 MG TABLET PO SCH (09:00)
[2019-02-14] MEDS ORDERED: NON FORMULARY ITEM (Liraglutide (Victoza 2-Pak) 0.6 MG) SQ SCH (09:00)
[2019-02-14] MEDS ORDERED: MONTELUKAST 10 MG TABLET. PO SCH (09:00)
[2019-02-14] MEDS ORDERED: LISINOPRIL 20 MG TABLET PO SCH (09:00)
--- NOTE | 2019-02-14 10:40 | NUR ---
Patient is D/C home with self care. Patients IV is D/C'd tele monitor removed. Patient is given work release and follow up instructions. Patient is stable at time of D/C. Patient ambulated off unit accompanied by family.
--- NOTE | 2019-02-14 20:03 | SSS ---
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 He began having shortness of breath and nausea, vomiting, and dizziness. The patient does have a long history of asthma and COPD. In any case, came through the Emergency Room, quite distraught. The patient was admitted to the hospital for further evaluation and treatment. PAST MEDICAL HISTORY: Anxiety, COPD, type 2 diabetes, morbid obesity, DVT, hypercholesterolemia, hypertension, lung disease. Also, he has had history of congestive heart failure, chronic anticoagulant therapy with Xarelto, hypertension, DVT, PE, sleep apnea, clotting problem in the left arm. Tetanus and influenza vaccinations are up-to-date. FAMILY HISTORY: Mother had a smoking and lung cancer problem. Father had alcoholism, diabetes. Sister with COPD, possible drug abuse. ALLERGIES: The patient has an allergy to OXYCODONE. SOCIAL HISTORY: The patient denies smoking, alcohol or drug use. CODE STATUS: He is a full code. REVIEW OF SYSTEMS: He does have shortness of breath and does have problems with feeling dizzy, lightheaded and like. Presently, no nausea, although he did have nausea when he was in the atmosphere of the painter decorator, so we need to continue to monitor that. MEDICATIONS: Otherwise, his medications; DuoNeb, albuterol inhaler, Xarelto 20 mg daily, fenofibrate 54, lisinopril 20, diclofenac 75, potassium chloride 20, furosemide 40, Singulair 10 mg daily, testosterone for a couple of weeks and Victoza and Tresiba. PHYSICAL EXAMINATION: GENERAL: The patient is alert and oriented. VITAL SIGNS: Blood pressure 138/80, pulse 90, respiratory rate 18-22. HEENT: Head is atraumatic, normocephalic. Eyes: PERRLA without jaundice. Mouth and throat were normal. NECK: Supple. LUNGS: Diminished throughout, poor movement of the air. CARDIOVASCULAR SYSTEM: Regular sinus rhythm, S1, S2. ABDOMEN: Protuberant, soft, nontender, no rebound or guarding. Positive bowel sounds, no hepatosplenomegaly was noted. EXTREMITIES: No clubbing, cyanosis. Trace edema noted. NEUROLOGIC: The patient was alert and oriented x 3. IMPRESSION AND PLAN: Inhalation of chemical agents and the patient otherwise has nausea, vomiting as well as some shortness of breath from the noxious fumes. The patient was discharged home on his home medications. He will continue to be monitored carefully, make further evaluation on him as indicated. BILLY BENITEZ MD DR: TAYLOR/fernandez JOB#: [id number] / [id number]
--- NOTE | 2019-02-15 07:44 | EKG ---
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
== END 2019-02-14 10:15 | disposition home or self-care (01) ==
LOC: ER 12:46 → 1 SOUTH 15:35 → INTOOBSV 15:35
PROVIDERS: ADMIT Family Medicine; ATTEND Family Medicine
DX: R42 Dizziness and giddiness (principal); F41.9 Anxiety disorder, unspecified; J44.9 Chronic obstructive pulmonary disease, unspecified; E78.00 Pure hypercholesterolemia, unspecified; E11.9 Type 2 diabetes mellitus without complications; Z77.098 Contact with and (suspected) exposure to other hazardous, chiefly nonmedicinal, chemicals; Z80.1 Family history of malignant neoplasm of trachea, bronchus and lung; Z82.5 Family history of asthma and other chronic lower respiratory diseases; Z83.3 Family history of diabetes mellitus; R11.2 Nausea with vomiting, unspecified; N28.9 Disorder of kidney and ureter, unspecified; E66.01 Morbid (severe) obesity due to excess calories; I11.0 Hypertensive heart disease with heart failure; I50.9 Heart failure, unspecified
CPT/HCPCS: 36415; 70450; 71046; 80053; 80307; 81001; 82947; 83735; 83880; 84484; 85025; 85610; 93005; 94640; 96361; 96372; 96374; 96375; 99284; G0378; J1815; J2060; J2405; J7620; J8597; G0379; 99285-25; J7030

== ENCOUNTER 2019-10-22 16:54 | Observation (INO) | payer OTHER ==
[2019-10-22] VITALS (7 sets, daily range): BP systolic 103–153; BP diastolic 62–100
[~2019-10-22] VITALS: Ht 160 cm; Wt 124.2 kg
[~2019-10-22 16:54] MED LIST changes: +DICL75TA PO; +MONT10TA80 PO; +MORP-16 PO; -MORP30TA3 PO; +MULT1TAB52 PO; +TEST200V3 IM
[2019-10-22] MEDS ORDERED: IV 1/2 NORMAL SALINE 1,000 ML IV PRN (17:15)
[2019-10-22] MEDS ORDERED: ALBUTEROL SULFATE 2.5 MG/3 ML NEBU. INH PRN (17:15)
[2019-10-22 17:53] LABS: BASO # 0.1 x10^3/uL (0.0-0.2); BASO % 1 % (0-3); EOS # 0.3 x10^3/uL (0.0-0.7); EOS % 3 % (0-3); HEMATOCRIT 50.7 % (39.0-53.0); HEMOGLOBIN 16.7 g/dL (13.0-17.5); LYMPH # 2.4 x10^3/uL (1.0-4.8); LYMPH % 27 % (24-48); MEAN CORPUSCULAR HEMOGLOBIN 30 pg (25-35); MEAN CORPUSCULAR HGB CONC 33 g/dL (31-37); MEAN CORPUSCULAR VOLUME 90 fL (79-100); MONO # 0.7 x10^3/uL (0.0-1.1); MONO % 8 % (0-9); NEUT # 5.5 x10^3uL (1.8-7.7); NEUT % 61 % (31-73); PLATELET COUNT 183 x10^3/uL (140-400); RED BLOOD COUNT 5.62 x10^6/uL (4.30-5.70); RED CELL DISTRIBUTION WIDTH 13.9 % (11.5-14.5)
[2019-10-22] MEDS ORDERED: ALBUTEROL SULFATE 2.5 MG/3 ML NEBU. NEB PRN (18:00)
[2019-10-22 18:03] LABS: BGAS PH 7.41 (7.35-7.46)
[2019-10-22 18:13] LABS: ALBUMIN 3.5 g/dL (3.4-5.0); ALBUMIN/GLOBULIN RATIO 0.8 (1.0-1.7); CALCIUM 9.8 mg/dL (8.5-10.1); CREATININE 1.1 mg/dL (0.7-1.3); GFR 68.8; POTASSIUM 3.7 mmol/L (3.5-5.1); TOTAL PROTEIN 7.7 g/dL (6.4-8.2)
--- NOTE | 2019-10-22 18:33 | EKG ---
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
[2019-10-22] MEDS: IPRATRPIUM/ALBUTEROL 0.5/2.5MG 3 ML NEBU. NEB SCH (20:14)
[2019-10-22 20:30] LABS: BILIRUBIN,URINE NEG (NEG); CLARITY,URINE CLEAR; COLOR,URINE AMBER; GLUCOSE,URINE >=1000 mg/dL (NEG); NITRITE,URINE NEG (NEG)
[2019-10-22 20:31] LABS: BACTERIA,URINE 0 /HPF (0-FEW); RBC,URINE 0 /HPF (0-2); SQUAMOUS EPITHELIAL CELL,UR OCC /LPF; WBC,URINE RARE /HPF (0-4)
--- NOTE | 2019-10-22 20:44 | RAD ---
CHEST PA LATERAL History: Shortness of air Comparison: February 13, 2019 Findings: 2 views of the chest are submitted. There is no dependent pleural fluid or pneumothorax. Heart size is stable. Lung markings near the lung bases are similar, no new convincing lobar infiltrate by radiograph. Impression: 1. No convincing acute radiographic abnormality is identified. Electronically signed by: Martin Fleming MD (10/22/2019 8:41 PM) [id number]
[2019-10-22] MEDS: DICLOFENAC SODIUM 25 MG TABLET.DR PO SCH (20:48)
[2019-10-22] MEDS: POTASSIUM CHLORIDE 20 MEQ TABLET.ER. PO SCH (20:49)
[2019-10-22] MEDS ORDERED: DEXTROSE 50% 25 GM / 50ML DISP.SYRIN. IV PRN (21:00)
[2019-10-22] MEDS ORDERED: INSULIN GLARGINE SYRINGE. SQ SCH (21:00)
[2019-10-22] MEDS: INSULIN LISPRO 300 UNITS/3 ML VIAL. SQ SCH (21:12)
[2019-10-23] VITALS (9 sets, daily range): BP systolic 108–140; BP diastolic 66–92
[2019-10-23] MEDS: IPRATRPIUM/ALBUTEROL 0.5/2.5MG 3 ML NEBU. NEB SCH ×2 (05:20→09:15)
[2019-10-23 06:23] LABS: CALCIUM 8.5 mg/dL (8.5-10.1); GFR 76.7; POTASSIUM 3.7 mmol/L (3.5-5.1)
[2019-10-23] MEDS: POTASSIUM CHLORIDE 20 MEQ TABLET.ER. PO SCH (08:23)
[2019-10-23] MEDS: DICLOFENAC SODIUM 25 MG TABLET.DR PO SCH (08:24)
[2019-10-23] MEDS: INSULIN LISPRO 300 UNITS/3 ML VIAL. SQ SCH (08:25)
[2019-10-23] MEDS ORDERED: FENOFIBRATE NANOCRYSTALLIZED 48 MG TABLET PO SCH (09:00)
[2019-10-23] MEDS ORDERED: FUROSEMIDE 40 MG TABLET PO SCH (09:00)
[2019-10-23] MEDS ORDERED: CHOLECALCIFEROL (VITAMIN D3) 1,000 UNIT TABLET PO SCH (09:00)
[2019-10-23] MEDS ORDERED: MONTELUKAST 10 MG TABLET. PO SCH (09:00)
[2019-10-23] MEDS ORDERED: LISINOPRIL 20 MG TABLET PO SCH (09:00)
[2019-10-23] MEDS ORDERED: NON FORMULARY ITEM (Liraglutide (Victoza 2-Pak) 0.6 MG) SQ SCH (09:00)
[2019-10-23] MEDS ORDERED: MULTIVITAMIN with MINERAL TABLET. PO SCH (09:00)
[2019-10-23] MEDS ORDERED: RIVAROXABAN 10 MG TABLET. PO SCH (17:00)
[2019-10-23] MEDS ORDERED: INSULIN GLARGINE SYRINGE. SQ SCH (21:00)
--- NOTE | 2019-10-25 09:00 | DS ---
DATE OF DISCHARGE: 10/23/2019 HOSPITAL COURSE: A 59-year-old male came in through the office. His sugars were running in the 500s. He had positive ketones in his urine. The patient was given a shot of insulin while in the office. The patient was slightly hypoxic, was brought in for observation for further evaluation and treatment. He was markedly dehydrated. He was given IV fluids and the patient made good progress during the rest of his hospitalization, with the blood sugars coming down. He was given information about diabetes and encouraged to lose weight and monitor strict diet. The patient probably is not able to carry on a full-time employment as he is chronically ill with his complications of his blood sugars. The patient's sodium, potassium, BUN and creatinine and GFR were normal. Sugars were brought down into range. The patient will be discharged home. Follow up as an outpatient. IMPRESSION: Poorly controlled type 2 diabetes, morbid obesity, glucosuria, hypoxia. The patient will be monitored. BILLY BENITEZ MD DR: TAYLOR/fernandez JOB#: [id number] / [id number]
== END 2019-10-23 11:00 | disposition home or self-care (01) ==
LOC: ICU 16:54 → INTOOBSV 16:54
PROVIDERS: ADMIT Family Medicine; ATTEND Family Medicine
DX: E11.65 Type 2 diabetes mellitus with hyperglycemia (principal); E66.01 Morbid (severe) obesity due to excess calories; R09.02 Hypoxemia; E86.0 Dehydration
CPT/HCPCS: 36415; 71046; 80048; 80053; 81001; 82803; 82947; 83880; 84484; 85025; 93005; 94640; 96360; 96361; 96372; G0378; G0379; J1815; J7030; J7620

== ENCOUNTER 2020-01-14 03:06 | Observation (INO) | payer OTHER ==
[~2020-01-14] VITALS: Ht 165.1 cm; Wt 126.4 kg
--- NOTE | 2020-01-14 03:25 | PHYS DOC ---
Past History Past Medical History: Anxiety, COPD, Diabetes, DVT, High Cholesterol, Hypertension, Lung Disease Past Surgical History: No Surgical History Alcohol Use: None Drug Use: None General Adult EDM: Chief Complaint: DIZZY/LIGHT HEADED HPI: HPI: "..I think maybe I got food poisoning... I had Abdon Pennington... a quater pounder with cheese at about 9:30 pm....then about 1:.00 I got onset of severe.. diarrhea.. and when I was on the pot.. I felt really dizzy.. " ..My sugars have not been too bad.. 200's tonight...".. " [place] like i was going to pass out. ..".. " I am so nauseated.. I feel like I am going to vomit..." Patient is a 59 year old male who presents with above hx and complaints of dizzy after multiple episodes of diarrhea. Possible bad food intake. Patient has had previous episodes of dizziness on prior ED evaluations of 10/22/2019 and 02/13/2019. Patient has no history of diabetes and frequent episodes of poor control of his glucose. Patient on prior admit had dehydration. Patient is morbidly obese. Patient only follows with Dr. Mancini. No recent travel. No specific ill contacts. Review of Systems: Review of Systems: Constitutional: Denies fever or chills Eyes: Denies change in visual acuity HENT: Denies nasal congestion or sore throat Respiratory: Denies cough or shortness of breath Cardiovascular: Denies chest pain or edema GI:Complaints of abdominal pain, nausea, and diarrhea : Denies dysuria Musculoskeletal: Denies back pain or joint pain Integument: Denies rash Neurologic: Denies headache, focal weakness or sensory changes . Dizzy Endocrine: Denies polyuria or polydipsia Lymphatic: Denies swollen glands Psychiatric: Denies depression or anxiety Heart Score: HEART Score for Chest Pain: HEART Score for Chest Pain Response (Comments) Value History Moderately Suspicious 1 ECG Nonspecific Repolarizatio 1 Age >45 - < 65 1 Risk Factors 1 or 2 Risk Factors 1 Troponin < Normal Limit 0 Total 4 Risk Factors: Risk Factors: DM, Current or recent (<one month) smoker, HTN, HLP, family history of CAD, obesity. Risk Scores: Score 0 - 3: 2.5% MACE over next 6 weeks - Discharge Home Score 4 - 6: 20.3% MACE over next 6 weeks - Admit for Clinical Observation Score 7 - 10: 72.7% MACE over next 6 weeks - Early Invasive Strategies Family History: Family History: Noncontributory to presentation Current Medications: Current Meds: See nursing for home meds Allergies: Allergies: Allergies Coded Allergies Type Severity Reaction Last Updated Verified oxycodone Allergy Intermediate lost hearing temporaily 09/03/16 Yes Physical Exam: PE: Constitutional: , no acute distress, non-toxic appearance. [] HENT: Normocephalic, atraumatic, bilateral external ears normal, oropharynx moist, no oral exudates, nose normal. [] Eyes: PERRLA, EOMI, conjunctiva normal, no discharge. [] Neck: Normal range of motion, no tenderness, supple, no stridor. No bruit appreciated. Cardiovascular:Heart rate regular rhythm, no murmur [] Lungs & Thorax: Bilateral breath sounds clear to auscultation [] Abdomen: Bowel sounds hyperactive,, soft, no tenderness, no masses, no pulsatile masses. Obese. Umbilicus hernia. Skin: Warm, dry, no erythema, no rash. [] Back: No tenderness, no CVA tenderness. [] Extremities: No tenderness, no cyanosis, no clubbing, ROM intact, lower leg edema. [] No psoas sign. No cording appreciated. Neurologic: Alert and oriented X 3, normal motor function, normal sensory function, no focal deficits noted. [] DTRs +2 patellar brachial. Cosmetician equal. No drift. Psychologic: Affect anxious, judgement normal, mood normal. [] EKG: EKG: My interpretation EKG shows a sinus rhythm at 84 bpm. There is some nonspecific left axis deviation and some findings right bundle branch block. No obvious findings of acute STEMI of contralateral changes. [] Radiology/Procedures: Radiology/Procedures: [[address] [address] IMAGING REPORT Signed PATIENT: DANA ALSTON ACCOUNT: [id number] : 1960 LOCATION: ER AGE: 59 SEX: M EXAM STATUS: REG ER ORD. PHYSICIAN: ESTHER MONTEMAYOR MD REASON: nausea, abd. pain PROCEDURE: ABDOMEN SUPINE & UPRIGHT ABDOMEN SUPINE UPRIGHT, CHEST PA LATERAL Technique: PA and lateral views of the chest were obtained. Clinical History: Nausea and abdominal pain Comparison: None. Findings: The heart and pulmonary vasculature appear within normal limits. There is perihilar and basilar linear opacities. The pleural margins are clear. Impression: Bilateral infiltrates suggesting atypical pneumonia. End impression Two-view abdomen pelvis Supine and upright AP view abdomen pelvis There is a relative paucity of bowel gas. There is no evidence of free air. IMPRESSION: Nonspecific bowel gas pattern. Electronically signed by: Sonia Funk III, MD (01/14/2020 4:37 AM) [id number] DICTATED AND SIGNED BY: SONIA FUNK III, MD DATE: 01/14/20436 CC: BILLY BENITEZ MD; ESTHER MONTEMAYOR MD ~ ][place] [address] IMAGING REPORT Signed PATIENT: DANA ALSTON ACCOUNT: [id number] : 1960 LOCATION: ER AGE: 59 SEX: M EXAM STATUS: REG ER ORD. PHYSICIAN: ESTHER MONTEMAYOR MD REASON: dizzy, vertigo complaints PROCEDURE: CT HEAD WO CONTRAST CT Head W/O Contrast: History: Dizziness and vertigo Comparison: February 13, 2019 Axial images were obtained without contrast. The archer and white matter appears normal and symmetrical for the patients age. There is no mass effect, extraaxial fluid collections or hydrocephalus. There is no gross bleed. There is no focal loss of archer-white matter distinction to suggest acute ischemia, i.e. stroke. Impression: No acute findings. PQRS Compliance Statement: One or more of the following individualized dose reduction techniques were utilized for this examination: 1. Automated exposure control 2. Adjustment of the mA and/or kV according to patient size 3. Use of iterative reconstruction technique Electronically signed by: Sonia Funk III, MD (01/14/2020 4:31 AM) [id number] DICTATED AND SIGNED BY: SONIA FUNK III, MD DATE: 01/14/20430 CC: BILLY BENITEZ MD; ESTHER MONTEMAYOR MD ~ Course & Med Decision Making: Course & Med Decision Making Pertinent Labs and Imaging studies reviewed. (See chart for details) Pt. admitted to - further eval. and treatment. Impression; 1. Dizzy 2. Near syncope - Vasovagal vs Dehydration 3. Diarrhea 4. DM =288 5. Elevated Kush T = 1.3, D 0.3 [] Dragon Disclaimer: Dragon Disclaimer: This electronic medical record was generated, in whole or in part, using a voice recognition dictation system. Departure Departure: Disposition: 01 HOME/RESIDENCE PRIOR TO ADM Condition: STABLE Referrals: BILLY BENITEZ MD (PCP) Dragon Disclaimer This chart was dictated in whole or in part using Voice Recognition software in a busy, high-work load, and often noisy Emergency Department environment. It may contain unintended and wholly unrecognized errors or omissions. ESTHER MONTEMAYOR MD January 14, 2020 03:25
[2020-01-14] MEDS ORDERED: IV NORMAL SALINE 1,000ML 1,000 ML IV SCH (03:30)
[2020-01-14] MEDS ORDERED: IV RINGERS SOLUTION,LACTATED 1,000 ML IV SCH (03:30)
[2020-01-14 03:44] LABS: BASO # 0.1 x10^3/uL (0.0-0.2); BASO % 1 % (0-3); EOS # 0.1 x10^3/uL (0.0-0.7); EOS % 2 % (0-3); HEMATOCRIT 47.2 % (39.0-53.0); HEMOGLOBIN 15.7 g/dL (13.0-17.5); LYMPH # 1.9 x10^3/uL (1.0-4.8); LYMPH % 22 % (24-48); MEAN CORPUSCULAR HEMOGLOBIN 30 pg (25-35); MEAN CORPUSCULAR HGB CONC 33 g/dL (31-37); MEAN CORPUSCULAR VOLUME 91 fL (79-100); MONO # 0.8 x10^3/uL (0.0-1.1); MONO % 9 % (0-9); NEUT # 5.7 x10^3uL (1.8-7.7); NEUT % 66 % (31-73); PLATELET COUNT 172 x10^3/uL (140-400); RED BLOOD COUNT 5.19 x10^6/uL (4.30-5.70); RED CELL DISTRIBUTION WIDTH 14.1 % (11.5-14.5); WHITE BLOOD COUNT 8.6 x10^3/uL (4.0-11.0)
[2020-01-14 03:58] LABS: ALBUMIN 3.4 g/dL (3.4-5.0); CALCIUM 9.3 mg/dL (8.5-10.1); CREATININE 1.2 mg/dL (0.7-1.3); DIRECT BILIRUBIN 0.3 mg/dL (0.0-0.2); GFR 62.2; MAGNESIUM 1.8 mg/dL (1.8-2.4); POTASSIUM 3.7 mmol/L (3.5-5.1); TOTAL BILIRUBIN 1.3 mg/dL (0.2-1.0); TOTAL PROTEIN 6.9 g/dL (6.4-8.2)
--- NOTE | 2020-01-14 04:32 | EKG ---
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
--- NOTE | 2020-01-14 04:34 | RAD ---
CT Head W/O Contrast: History: Dizziness and vertigo Comparison: February 13, 2019 Axial images were obtained without contrast. The archer and white matter appears normal and symmetrical for the patients age. There is no mass effect, extraaxial fluid collections or hydrocephalus. There is no gross bleed. There is no focal loss of archer-white matter distinction to suggest acute ischemia, i.e. stroke. Impression: No acute findings. RS Compliance Statement: One or more of the following individualized dose reduction techniques were utilized for this examination: 1. Automated exposure control 2. Adjustment of the mA and/or kV according to patient size 3. Use of iterative reconstruction technique Electronically signed by: Guido Beatty III, MD (01/14/2020 4:31 AM) [id number]
--- NOTE | 2020-01-14 04:40 | RAD ---
ABDOMEN SUPINE UPRIGHT, CHEST PA LATERAL Technique: PA and lateral views of the chest were obtained. Clinical History: Nausea and abdominal pain Comparison: None. Findings: The heart and pulmonary vasculature appear within normal limits. There is perihilar and basilar linear opacities. The pleural margins are clear. Impression: Bilateral infiltrates suggesting atypical pneumonia. End impression Two-view abdomen pelvis Supine and upright AP view abdomen pelvis There is a relative paucity of bowel gas. There is no evidence of free air. IMPRESSION: Nonspecific bowel gas pattern. Electronically signed by: Guido Beatty III, MD (01/14/2020 4:37 AM) [id number]
[2020-01-14] MEDS ORDERED: ONDANSETRON PF 4 MG/2 ML VIAL. IVP PRN (04:45)
[2020-01-14] MEDS ORDERED: ACETAMINOPHEN 325 MG TABLET PO PRN (04:45)
[2020-01-14 05:50] VITALS: BP 147/92
[2020-01-14 06:26] LABS: AMPHETAMINE/METHAMPHETAMINE NEG (NEG); BARBITURATES NEG (NEG); BENZODIAZEPINES NEG (NEG); CANNABINOIDS NEG (NEG); COCAINE NEG (NEG); METHADONE NEG (NEG); OPIATES NEG (NEG); PHENCYCLIDINE NEG (NEG)
[2020-01-14 06:32] LABS: CLARITY,URINE CLEAR; COLOR,URINE YELLOW; GLUCOSE,URINE >=1000 mg/dL (NEG)
[2020-01-14 06:33] LABS: BACTERIA,URINE 0 /HPF (0-FEW); BILIRUBIN,URINE NEG (NEG); NITRITE,URINE NEG (NEG); RBC,URINE OCC /HPF (0-2); SQUAMOUS EPITHELIAL CELL,UR OCC /LPF
[2020-01-14] MEDS ORDERED: MELO15TA23 PO (06:34)
[2020-01-14] MEDS ORDERED: IPRATRPIUM/ALBUTEROL 0.5/2.5MG 3 ML NEBU. NEB SCH ×2 (08:00→12:00)
[2020-01-14] MEDS ORDERED: ASPIRIN CHEWABLE 81 MG TABLET. PO SCH (08:00)
[2020-01-14 09:24] VITALS: BP 139/80
[2020-01-14] MEDS ORDERED: ALBUTEROL SULFATE 2.5 MG/3 ML NEBU. INH PRN (09:45)
[2020-01-14] MEDS ORDERED: PROCHLORPERAZINE 10 MG/2 ML VIAL. IV PRN (09:45)
[2020-01-14] MEDS ORDERED: MONTELUKAST 10 MG TABLET. PO SCH (10:00)
[2020-01-14] MEDS ORDERED: LISINOPRIL 20 MG TABLET PO SCH (10:00)
--- NOTE | 2020-01-14 11:41 | RAD ---
CT Abdomen and Pelvis without contrast History: Abdominal pain Technique: Noncontrast CT imaging was performed of the abdomen and pelvis. Multiplanar images are reviewed. Exposure: One or more of the following individualized dose reduction techniques were utilized for this examination: 1. Automated exposure control 2. Adjustment of the mA and/or kV according to patient size 3. Use of iterative reconstruction technique. Comparison: January 12, 2018 Findings: There is no hydronephrosis or renal or ureteral calculus. There is again 3.4 cm hypodense lesion posteriorly of the mid right kidney, density measurements of a cyst about 3 Hounsfield units. There is 0.4 cm subtle hypodense lateral left kidney. Accurate evaluation of abdominal visceral organs is limited without intravenous contrast. There is no obvious abnormality of the spleen, liver, or pancreas. Gallbladder is present without obvious intraluminal abnormality by CT. There is no adrenal nodularity. Accurate evaluation of bowel is limited without oral contrast. There is no significant free air, free fluid, bowel dilatation. Normal caliber appendix is visualized without adjacent inflammatory change. There is again mild colonic diverticulosis. There is again 2.6 cm transverse fat containing periumbilical hernia, no internal bowel. There is osteoarthritic change of the bilateral hips. There are prominent disc osteophyte complexes/partially calcified extrusions at L2-3 and L1-2 and 18 the ventral thecal sac with resultant degree of spinal stenosis greatest at L2-3. There is multilevel thoracic and lumbar neural foramina compromise in part from facet degenerative change, greatest of the lumbar spine on the left at L5-S1 and of visualized inferior thoracic levels such as bilaterally at T11-12, T10-11, T9-T10. Impression: 1. There is no significant inflammatory type change, no CT evidence of acute appendicitis. There is mild colonic diverticulosis. 2. There is again fat-containing ventral periumbilical hernia, no internal bowel. 3. There is again right renal cyst. 4. There is multilevel thoracolumbar neural foramina compromise. Partially calcified extrusions/disc osteophyte complexes at L2-3 and L1-2 result in degree of spinal stenosis. Electronically signed by: Martin Fleming MD (01/14/2020 11:38 AM) [id number]
--- NOTE | 2020-01-14 12:26 | RAD ---
DOPPLER CAROTID BILAT History: Dizziness. Syncope. COMPARISON: None Technique: Duplex sonography of the cervical portion of both carotid arteries was performed. Real-time grayscale, color flow Doppler, and Doppler spectral waveform analysis is performed. PQRS Compliance Statement - Stenosis calculations for CT, MR and conventional angiography are based upon measurement of the distal ICA diameter in accordance with the NASCET methodology. Stenosis calculations for carotid ultrasound studies are derived from validated velocity criteria which are known to correlate with the NASCET methodology. Findings: Right side: Peak systolic flow velocity of the CCA is 127 cm/sec. Peak systolic flow velocity of the ICA is 117 cm/sec. The ICA/CCA ratio is 0.9. Peak end diastolic flow velocity of the ICA is 22 cm/sec. The peak systolic velocity of the ECA is 150 cm/sec. No significant plaque formation is identified, Left side: Peak systolic flow velocity of the CCA is 147 cm/sec. Peak systolic flow velocity of the ICA is 109 cm/sec. The ICA/CCA ratio is 0.7. Peak end diastolic flow velocity of the ICA is 21 cm/sec. Peak systolic flow velocity of the ECA is 140 cm/sec. No significant plaque formation is identified. Vertebral arteries: Bilateral vertebral arteries demonstrate antegrade flow. IMPRESSION: 1. No hemodynamically significant internal carotid artery stenosis. Electronically signed by: Cachorro Fong DO (01/14/2020 12:23 PM) [id number]
[2020-01-14 13:31] LABS: THYROID STIM HORMONE (TSH) 0.347 uIU/mL (0.358-3.740)
[2020-01-14 15:26] VITALS: BP 135/86
[2020-01-14] MEDS ORDERED: RIVAROXABAN 10 MG TABLET. PO SCH (17:00)
--- NOTE | 2020-01-15 18:48 | DS ---
DATE OF DISCHARGE: 01/14/2020 HOSPITAL COURSE: This is a 59-year-old gentleman initially seen in the office, seen then later in the ER, came in with severe abdominal pain, diarrhea, nausea, vomiting. The patient apparently had some food from [employer] late in the evening and about 1:00 in the morning began to have severe abdominal pain. He was extremely nauseated and unable to pass any gas and as a result of this came in through the Emergency Room, where he was admitted for further evaluation and treatment of his abdominal pain. CT scan of the area did not demonstrate any obvious obstruction. There were multiple levels of ____ neural foraminal compromise and partial calcified extrusions and disk osteophyte complexes at L2-L3, L1-L2 and a degree of spinal stenosis there. The patient also noted there were multiple levels of the thoracic and lumbar neural foraminal compromise in the back as well as multiple levels in the thoracic area as well. In any case, the patient made relatively good progress. His sugars were elevated at 288 and 255. His TSH was low at 0.347. His triglycerides were elevated at 174, but his LDL was 88 and his HDL was 28. The patient's total bilirubin was 1.3. His other liver enzymes were normal as well as his electrolytes. His D-dimer was normal. His tox screen was negative. In any case, the patient made good progress with fluids, antiemetics, which were significant; have to be used because of the significance of his nausea. The ER performed a very thorough exam including CT scan of his head, which was negative. Carotid Dopplers were unremarkable. X-ray of his chest was unremarkable. The patient overall made excellent progress during the rest of his hospitalization and therefore was discharged home per his request. IMPRESSION: Near syncope, vasovagal; diarrhea; type 2 diabetes, poorly controlled; morbid obesity; hyperbilirubinemia; vestibulitis. The patient was discharged home on a diabetic diet, decreased activity, told not to eat late at night and monitor his diabetic situation and he will return to clinic for followup with his provider, Kellee, and make further evaluation at that time. BILLY BENITEZ MD DR: TAYLOR/fernandez JOB#: [id number] / [id number]
== END 2020-01-14 16:30 | disposition home or self-care (01) ==
LOC: ER 03:06 → 1 SOUTH 04:30
PROVIDERS: ADMIT Family Medicine; ATTEND Family Medicine
DX: R42 Dizziness and giddiness (principal); R55 Syncope and collapse; E11.65 Type 2 diabetes mellitus with hyperglycemia; E66.01 Morbid (severe) obesity due to excess calories; E78.00 Pure hypercholesterolemia, unspecified; I10 Essential (primary) hypertension; J44.9 Chronic obstructive pulmonary disease, unspecified; M25.78 Osteophyte, vertebrae; F41.9 Anxiety disorder, unspecified; Z79.899 Other long term (current) drug therapy
CPT/HCPCS: 36415; 70450; 71046; 74019; 74176; 80048; 80061; 80076; 80307; 81001; 82550; 82947; 83690; 83735; 83880; 84443; 84484; 85025; 85379; 85610; 85730; 93005; 93880; 94640; 96361; 96374; 99285; G0378; J2405; J7120; G0379; J7030

== ENCOUNTER 2021-04-15 06:53 | Inpatient (IN) | payer OTHER ==
[~2021-04-15] VITALS: Ht 165.1 cm; Wt 112.0 kg
[2021-04-15] VITALS (10 sets, daily range): BP systolic 94–131; BP diastolic 54–80
[~2021-04-15 06:53] MED LIST changes: -LISI-334 PO; +LISI20TA18 PO; +MELO15TA23 PO; +MULT-445 PO; -MULT1TAB52 PO
--- NOTE | 2021-04-15 07:33 | PHYS DOC ---
Past History Past Medical History: Anxiety, COPD, Diabetes, DVT, High Cholesterol, Hypertension, Lung Disease Past Surgical History: No Surgical History Alcohol Use: None Drug Use: None General Adult EDM: Chief Complaint: COUGH HPI: HPI: Patient is a 60-year-old male coming in for shortness of breath. He was diagnosed with COVID-19 1 week ago. Patient states he has had worsening cough and tachypnea especially with exertion. Patient chose not to get vaccine because he was "scared" of the vaccine. Denies any fevers or GI complaints. Review of Systems: Review of Systems: All other systems within normal limits except for as noted in the HPI Allergies: Allergies: Allergies Coded Allergies Type Severity Reaction Last Updated Verified oxycodone Allergy Intermediate lost hearing temporaily 09/03/16 Yes Physical Exam: PE: Constitutional: Well developed, well nourished, no acute distress, non-toxic appearance. [] HENT: Normocephalic, atraumatic, bilateral external ears normal, nose normal. [] Eyes: PERRLA, conjunctiva normal, no discharge. [] Neck: No rigidity, supple, no stridor. [] Cardiovascular: Regular rate and rhythm, brisk cap refill [] Lungs & Thorax: Tachypneic, bilateral coarse breath sounds Abdomen: Soft, nondistended. Skin: Warm, dry, no erythema, no rash. [] Back: Unremarkable Extremities: No deformities, range of motion grossly intact, no lower extremity edema [] Neurologic: Alert and oriented X 3, no focal deficits noted. [] Psychologic: Affect normal, judgement normal, mood normal. [] Current Patient Data: Vital Signs: Vital Signs Date Time Temp Pulse Resp B/P (MAP) Pulse Ox O2 Delivery O2 Flow Rate FiO2 04/15/21 07:09 99.3 88 20 120/79 94 Room Air EKG: EKG: [] Radiology/Procedures: Radiology/Procedures: [address] [address] IMAGING REPORT Signed PATIENT: DANA ALSTON ACCOUNT: [id number] : 1960 LOCATION: ER AGE: 60 SEX: M EXAM STATUS: REG ER ORD. PHYSICIAN: LENNY BARRAGAN MD REASON: hypoxic, covid, OMNI 350, 100ml PROCEDURE: CT ANGIOGRAPHY CHEST Exam Date: 04/15/2021 9:20 AM CTA CHEST Indication: Reason: hypoxic, covid, OMNI 350, 100ml / Spl. Instructions: / History: . TECHNIQUE: CT angiogram of the chest was performed following the administration of nonionic intravenous contrast for evaluation of pulmonary embolus. 3D MIPs were created and reviewed on an independent workstation to assist in diagnosis and clinical management. One or more of the following dose reduction techniques were utilized: *Automated exposure control (AEC) *Adjustment of mA and/or kV according to patient size *Use of iterative reconstruction technique *CT scan done according to ALARA, or ALARA/IMAGE GENTLY FINDINGS: There is adequate opacification of the pulmonary arteries. No central intravascular filling defects are appreciated. There is no evidence for central pulmonary embolus. The aorta is normal in caliber without evidence for dissection. Aortic calcifications are present. The heart is normal in size without pericardial effusion. Coronary artery calcifications are present. The visualized thyroid gland is within normal limits. There is a mildly enlarged left paratracheal lymph node. There are patchy infiltrates throughout the lungs bilaterally consistent with multifocal pneumonia. The central airways are patent. There is no pleural effusion or pneumothorax. Images of the upper abdomen demonstrate no focal abnormality. Degenerative changes are seen in the spine. IMPRESSION: No evidence for central pulmonary embolus. Multifocal pneumonia. Follow-up imaging to resolution is recommended to exclude underlying lung lesions. Mild mediastinal lymphadenopathy is likely reactive. Electronically signed by: Dalton Roberson MD (04/15/2021 9:46 AM) [id number] DICTATED AND SIGNED BY: DALTON ROBERSON MD DATE: 04/15/21 0937 CC: LENNY BARRAGAN MD; BILLY BENITEZ MD ~MTH0 0 [] Heart Score: C/O Chest Pain: Yes HEART Score for Chest Pain: HEART Score for Chest Pain Response (Comments) Value History Slighlty/Non-Suspicious 0 ECG Nonspecific Repolarizatio 1 Age >45 - < 65 1 Risk Factors 1 or 2 Risk Factors 1 Troponin < Normal Limit 0 Total 3 Risk Factors: Risk Factors: DM, Current or recent (<one month) smoker, HTN, HLP, family history of CAD, obesity. Risk Scores: Score 0 - 3: 2.5% MACE over next 6 weeks - Discharge Home Score 4 - 6: 20.3% MACE over next 6 weeks - Admit for Clinical Observation Score 7 - 10: 72.7% MACE over next 6 weeks - Early Invasive Strategies Course & Med Decision Making: Course & Med Decision Making Pertinent Labs and Imaging studies reviewed. (See chart for details) [] Dragon Disclaimer: Dragon Disclaimer: This electronic medical record was generated, in whole or in part, using a voice recognition dictation system. Departure Departure: Impression: Primary Impression: COVID Disposition: ADMITTED INPATIENT Admitting Physician: Billy Benietz Condition: STABLE Referrals: BILLY BENITEZ MD (PCP) LENNY BARRAGAN MD Apr 15, 2021 07:33
[2021-04-15] MEDS ORDERED: DEXAMETHASONE SOD PHOS 10 MG/ML VIAL. IVP ONE (07:45)
--- NOTE | 2021-04-15 07:49 | EKG ---
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
[2021-04-15 08:18] LABS: BASO % 1 % (0-3); EOS % 0 % (0-3); HEMATOCRIT 45.1 % (39.0-53.0); LYMPH % 16 % (24-48); MEAN CORPUSCULAR HEMOGLOBIN 30 pg (25-35); MEAN CORPUSCULAR HGB CONC 33 g/dL (31-37); MEAN CORPUSCULAR VOLUME 89 fL (79-100); MONO # 0.6 x10^3/uL (0.0-1.1); MONO % 9 % (0-9); NEUT # 4.8 x10^3uL (1.8-7.7); NEUT % 74 % (31-73); PLATELET COUNT 130 x10^3/uL (140-400); RED BLOOD COUNT 5.04 x10^6/uL (4.30-5.70); RED CELL DISTRIBUTION WIDTH 13.3 % (11.5-14.5); WHITE BLOOD COUNT 6.4 x10^3/uL (4.0-11.0)
--- NOTE | 2021-04-15 08:20 | RAD ---
EXAM: CHEST ONE VIEW. HISTORY: COVID-19. COMPARISON: 01/14/2020. FINDINGS: A frontal view of the chest is obtained. There are mild airspace opacities in both bases. There is no pneumothorax or pleural effusion. The he art is not enlarged. IMPRESSION: 1. Mild bibasilar infiltrates. Electronically signed by: Astrid Cain MD (04/15/2021 8:18 AM) [id number]
[2021-04-15 08:36] LABS: CALCIUM 8.8 mg/dL (8.5-10.1); CREATININE 1.1 mg/dL (0.7-1.3); GFR 68.5
[2021-04-15 08:43] LABS: BACTERIA,URINE 0 /HPF (0-FEW); BILIRUBIN,URINE NEG (NEG); CLARITY,URINE CLEAR; COLOR,URINE YELLOW; GLUCOSE,URINE >=1000 mg/dL (NEG); NITRITE,URINE NEG (NEG); RBC,URINE 0 /HPF (0-2); SQUAMOUS EPITHELIAL CELL,UR MANY /LPF; UROBILINOGEN,URINE 0.2 mg/dL (0.2 mg/dL)
[2021-04-15 08:50] LABS: ALBUMIN 3.1 g/dL (3.4-5.0); ALBUMIN/GLOBULIN RATIO 0.9 (1.0-1.7); MAGNESIUM 1.9 mg/dL (1.8-2.4); TOTAL BILIRUBIN 1.3 mg/dL (0.2-1.0); TOTAL PROTEIN 6.5 g/dL (6.4-8.2)
[2021-04-15] MEDS ORDERED: IOHEXOL 350 MG/ML 100 ML VIAL. IV ONE (09:00)
--- NOTE | 2021-04-15 09:49 | RAD ---
Exam Date: 04/15/2021 9:20 AM CTA CHEST Indication: Reason: hypoxic, covid, OMNI 350, 100ml / Spl. Instructions: / History: . TECHNIQUE: CT angiogram of the chest was performed following the administration of nonionic intrave nous contrast for evaluation of pulmonary embolus. 3D MIPs were created and reviewed on an [employer] workstation to assist in diagnosis and clinical management. One or more of the following dose red uction techniques were utilized: *Automated exposure control (AEC) *Adjustment of mA and/or kV according to patient size *Use of iterative reconstruction technique *CT scan done according to ALARA, or ALARA/IMAGE GENTLY FINDINGS: There is adequate opacification of the pulmonary arteries. No central intravascular filling defects are appreciated. There is no evidence for central pulmonary embolus. The aorta is normal in caliber without evidence for dissection. Aortic calcifications are present. The heart is normal in size without pericardial effusion. Coronary artery calcifications are present . The visualized thyroid gland is within normal limits. There is a mildly enlarged left paratracheal l ymph node. There are patchy infiltrates throughout the lungs bilaterally consistent with multifocal pneumonia. The central airways are patent. There is no pleural effusion or pneumothorax. Images of the upper abdomen demonstrate no focal abnormality. Degenerative changes are seen in the s pine. IMPRESSION: No evidence for central pulmonary embolus. Multifocal pneumonia. Follow-up imaging to resolution is recommended to exclude underlying lung lesi ons. Mild mediastinal lymphadenopathy is likely reactive. Electronically signed by: Darien Roberson MD (04/15/2021 9:46 AM) [id number]
[2021-04-15] MEDS ORDERED: ONDANSETRON PF 4 MG/2 ML VIAL. IVP PRN ×2 (10:15)
[2021-04-15] MEDS ORDERED: ACETAMINOPHEN 325 MG TABLET PO PRN (10:15)
--- NOTE | 2021-04-15 10:20 | NUR ---
Nursing Note Admission Patient arrived via EMS on gurney and ambulated into room. Pt complains of SOA. Pt accompanied by staff and settled in. Vitals taken.
[2021-04-15] MEDS ORDERED: MECL-75 PO (10:57)
[2021-04-15] MEDS ORDERED: AZITHROMYCIN 500 MG in IV NORMAL SALINE 250ML 250 ML IV ONE (11:00)
[2021-04-15] MEDS ORDERED: INSULIN REGULAR 100 UNIT/ML 3ML VIAL. IV ONE ×2 (11:45→13:15)
[2021-04-15] MEDS: DEXAMETHASONE SOD PHOS 4 MG/ML VIAL. IVP SCH ×2 (11:48→19:14)
[2021-04-15] MEDS: ACETAMINOPHEN 325 MG TABLET PO PRN ×2 (11:49→20:26)
[2021-04-15] MEDS ORDERED: IPRATRPIUM/ALBUTEROL 0.5/2.5MG 3 ML NEBU. NEB SCH (12:00)
[2021-04-15] MEDS ORDERED: ALBUTEROL SULFATE 8GM INHALER. INH PRN (12:30)
[2021-04-15] MEDS ORDERED: BENZONATATE 100 MG CAPSULE. PO ONE (13:00)
[2021-04-15] MEDS: IPRATROPIUM/ALBUTEROL 20/100mcg/INH INHALER. INH SCH ×3 (13:00→20:26)
[2021-04-15] MEDS ORDERED: REMDESIVIR LOAD in IV NORMAL SALINE 250ML TV IV ONE (13:00)
[2021-04-15] MEDS: BENZONATATE 100 MG CAPSULE. PO SCH ×2 (14:00→20:26)
[2021-04-15] MEDS ORDERED: DEXTROSE 50% 25 GM / 50ML DISP.SYRIN. IV PRN (14:00)
[2021-04-15] MEDS: MECLIZINE 12.5 MG TABLET. PO SCH ×2 (14:09→20:26)
[2021-04-15] MEDS: INSULIN REGULAR VIAL 100 UNIT in IV NORMAL SALINE 100ML 100 ML IV PRN ×2 (17:00→22:24)
[2021-04-15] MEDS: DICLOFENAC SODIUM 25 MG TABLET.DR PO SCH (19:14)
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
[2021-04-15] MEDS: POTASSIUM CHLORIDE 20 MEQ TABLET.ER. PO SCH (20:26)
[2021-04-15] MEDS: IV 1/2 NORMAL SALINE 1,000 ML IV SCH (20:27)
[2021-04-15] MEDS ORDERED: INSULIN GLARGINE SYRINGE. SQ SCH (21:00)
[2021-04-16] VITALS (24 sets, daily range): BP systolic 92–138; BP diastolic 52–95
[2021-04-16] MEDS: DEXAMETHASONE SOD PHOS 4 MG/ML VIAL. IVP SCH ×5 (00:08→23:29)
[2021-04-16] MEDS: IV 1/2 NORMAL SALINE 1,000 ML IV SCH ×4 (02:42→21:54)
--- NOTE | 2021-04-16 06:15 | NUR ---
Pt awake in bed at change of shift, watching TV. Pt is A&Ox4, very pleasant and cooperative with assessment and cares. Pt was transferred over to ICU around 1430 due being placed on Insulin gtt for elevated glucose and increasing O2 needs from [facility]. At shift change Pt is currently on 3L NC with sats 92-93%. Pt has insulin gtt per Glucostabilizer. Dr Chapman here to sleep pt at shift change. Pt ate HS snack and took medications whole without difficulty. Pt slept great during night but did require increase in O2 by morning. Pt by end of shift was requiring O2 at 6L high flow NC to maintain a 92%. Glucose much improved 150-170's on gtt.
[2021-04-16 06:57] LABS: BASO % 0 % (0-3); EOS % 0 % (0-3); HEMATOCRIT 41.1 % (39.0-53.0); LYMPH # 0.9 x10^3/uL (1.0-4.8); LYMPH % 14 % (24-48); MEAN CORPUSCULAR HEMOGLOBIN 31 pg (25-35); MEAN CORPUSCULAR HGB CONC 34 g/dL (31-37); MEAN CORPUSCULAR VOLUME 90 fL (79-100); MONO # 0.4 x10^3/uL (0.0-1.1); MONO % 6 % (0-9); NEUT # 5.5 x10^3uL (1.8-7.7); NEUT % 81 % (31-73); PLATELET COUNT 149 x10^3/uL (140-400); RED BLOOD COUNT 4.57 x10^6/uL (4.30-5.70); RED CELL DISTRIBUTION WIDTH 13.2 % (11.5-14.5); WHITE BLOOD COUNT 6.7 x10^3/uL (4.0-11.0)
[2021-04-16 07:12] LABS: ALBUMIN 2.7 g/dL (3.4-5.0); ALBUMIN/GLOBULIN RATIO 0.7 (1.0-1.7); CALCIUM 8.7 mg/dL (8.5-10.1); CREATININE 1.1 mg/dL (0.7-1.3); GFR 68.5; POTASSIUM 4.4 mmol/L (3.5-5.1); TOTAL BILIRUBIN 0.7 mg/dL (0.2-1.0); TOTAL PROTEIN 6.7 g/dL (6.4-8.2)
[2021-04-16] MEDS: MECLIZINE 12.5 MG TABLET. PO SCH ×3 (08:02→20:32)
[2021-04-16] MEDS: MONTELUKAST 10 MG TABLET. PO SCH (08:02)
[2021-04-16] MEDS: FUROSEMIDE 40 MG TABLET PO SCH (08:05)
[2021-04-16] MEDS: BENZONATATE 100 MG CAPSULE. PO SCH ×3 (08:05→20:32)
[2021-04-16] MEDS: MULTIVITAMIN with MINERAL TABLET. PO SCH (08:05)
[2021-04-16] MEDS: LISINOPRIL 20 MG TABLET PO SCH (08:05)
[2021-04-16] MEDS: LACTOBACILLUS RHAMNOSUS GG 1 CAPSULE. PO SCH ×2 (08:06→20:32)
[2021-04-16] MEDS: CHOLECALCIFEROL (VITAMIN D3) 1,000 UNIT TABLET PO SCH (08:06)
[2021-04-16] MEDS: POTASSIUM CHLORIDE 20 MEQ TABLET.ER. PO SCH ×2 (08:06→20:32)
[2021-04-16] MEDS: MELOXICAM 15 MG TABLET. PO SCH (08:08)
[2021-04-16] MEDS: DICLOFENAC SODIUM 25 MG TABLET.DR PO SCH ×2 (08:08→16:55)
[2021-04-16] MEDS: FENOFIBRATE NANOCRYSTALLIZED 48 MG TABLET PO SCH (08:08)
[2021-04-16] MEDS: IPRATROPIUM/ALBUTEROL 20/100mcg/INH INHALER. INH SCH ×4 (08:09→20:31)
[2021-04-16] MEDS: INSULIN REGULAR VIAL 100 UNIT in IV NORMAL SALINE 100ML 100 ML IV PRN ×2 (08:49→18:59)
--- NOTE | 2021-04-16 08:49 | NUR ---
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 Patient up in side of bed eating breakfast. Patient does have a good appetite and oral intake. Patient continues to be diaphoretic though afebrile at this time, patient gown changed. Patient given PO medication without difficulty, and intravenous antibiotic started. Patient encouraged to sit in chair which he was compliant/eager to. This nurse taught patient on how to use incentive spirometer (IS) which was presented to him with the discussion/demonstration method. Patient instructed to use IS every hour 10x at patient own pace. Patient was titrated down to 5L at this time and has been sating at 95-97%, will continue to monitor and titrate down slowly. Addendum: 04/16/21 at 0859 by FARRUKH LEWIS RN Amended: Links added.
[2021-04-16] MEDS: NON FORMULARY ITEM (Liraglutide (Victoza 2-Pak) 0.6 MG) SQ SCH (09:00)
[2021-04-16] MEDS ORDERED: DEXTROSE 50% 25 GM / 50ML DISP.SYRIN. IV PRN ×2 (09:15→18:45)
[2021-04-16] MEDS ORDERED: INSULIN GLARGINE SYRINGE. SQ SCH (09:30)
[2021-04-16] MEDS: INSULIN LISPRO 300 UNITS/3 ML VIAL. SQ SCH ×5 (09:35→17:00)
--- NOTE | 2021-04-16 10:29 | NUR ---
Titration of Oxygen Patient hi-flow nasal cannula titrated down to 4L sating 95%, will continue to monitor. P Addendum: 04/16/21 at 1244 by FARRUKH LEWIS RN Titrated to 3L sating 93% will continue to monitor/titrate.
[2021-04-16] MEDS: REMDESIVIR 100mg in NORMAL SALINE 250ML X 4 DAYS IV SCH (14:19)
[2021-04-16] MEDS ORDERED: INSULIN REGULAR 100 UNIT/ML 3ML VIAL. IV ONE (17:00)
--- NOTE | 2021-04-16 18:48 | NUR ---
Patient Condition Change Patient BMBS 409 @ 1654, called, orders received for 20unitd regular insulin via IVP and to recheck glucose post 1hr. At 1825 BMBS of 524 obtained. called, orders received to restart Insulin drip per protocol. Insulin drip restarted per Glucose Stabilizer @ 46.4gtts/hr.
[2021-04-17] VITALS (20 sets, daily range): BP systolic 88–123; BP diastolic 47–81
[2021-04-17] MEDS: INSULIN REGULAR VIAL 100 UNIT in IV NORMAL SALINE 100ML 100 ML IV PRN ×5 (00:53→20:30)
--- NOTE | 2021-04-17 02:17 | NUR ---
O2 Sats decreased to 88% on 2.5L while sleeping, increased oxygen to 4L, Sats increased to 93-94%; intermittent non-productive cough noted; occasional bilateral expiratory wheezing present; denies SOA while at rest; Insulin drip continues as per protocol with monitoring every hour and rate changes as per glucose stabilizer; glucometer readings range 271-380 mg/dl; VSS, no fever noted; no voiced needs or concerns at this time.
--- NOTE | 2021-04-17 03:48 | PN ---
SUBJECTIVE: A 60-year-old gentleman who was admitted with COVID-19 pneumonia and acute respiratory failure secondary to COVID-19, severely poorly controlled type 2 diabetes. The patient was in some respiratory distress yesterday, although he has come up with remdesivir, aggressive pulmonary toilet and the like. The patient seems to be making fairly good progress reasonable, but still required aggressive nasal cannula oxygen, Decadron, control of his blood sugar, he was on an insulin drip here in the ICU. OBJECTIVE: VITAL SIGNS: Blood pressure 114/90, respiratory rate 20, pulse 99. Presently afebrile. The patient continues to make good progress as he feels a little bit better, still very weak, still under a lot of respiratory difficulties with this situation with his respiratory problems with pneumonia. Otherwise, the patient continues to receive IV antibiotic therapy, Decadron, and close control of his blood sugars here in the ICU and make further evaluation. His last sugar was 500. It has been as low as 134. We will need to step up his insulin and make further evaluation ____. IMPRESSION: Acute respiratory failure secondary to COVID-19; COVID-19 pneumonia; type 2 diabetes, poorly controlled. The patient continued to be monitored carefully, make further evaluation on him as indicated. TAYLOR/RUBI/LUIS ENRIQUE DR: TAYLOR/fernandez TID: [id number]
[2021-04-17] MEDS: IV 1/2 NORMAL SALINE 1,000 ML IV SCH ×2 (04:26→12:38)
[2021-04-17] MEDS: DEXAMETHASONE SOD PHOS 4 MG/ML VIAL. IVP SCH ×2 (05:15→08:57)
[2021-04-17] MEDS: IPRATROPIUM/ALBUTEROL 20/100mcg/INH INHALER. INH SCH ×4 (08:50→20:00)
[2021-04-17] MEDS: MULTIVITAMIN with MINERAL TABLET. PO SCH (08:52)
[2021-04-17] MEDS: BENZONATATE 100 MG CAPSULE. PO SCH ×3 (08:52→21:09)
[2021-04-17] MEDS: CHOLECALCIFEROL (VITAMIN D3) 1,000 UNIT TABLET PO SCH (08:52)
[2021-04-17] MEDS: LACTOBACILLUS RHAMNOSUS GG 1 CAPSULE. PO SCH ×2 (08:52→21:09)
[2021-04-17] MEDS: MONTELUKAST 10 MG TABLET. PO SCH (08:52)
[2021-04-17] MEDS: MECLIZINE 12.5 MG TABLET. PO SCH ×3 (08:53→21:09)
[2021-04-17] MEDS: MELOXICAM 15 MG TABLET. PO SCH (08:53)
[2021-04-17] MEDS: POTASSIUM CHLORIDE 20 MEQ TABLET.ER. PO SCH ×2 (08:53→21:09)
[2021-04-17] MEDS: LISINOPRIL 20 MG TABLET PO SCH (08:54)
[2021-04-17] MEDS: FENOFIBRATE NANOCRYSTALLIZED 48 MG TABLET PO SCH (08:55)
[2021-04-17] MEDS: DICLOFENAC SODIUM 25 MG TABLET.DR PO SCH ×2 (08:56→15:04)
[2021-04-17] MEDS: FUROSEMIDE 40 MG TABLET PO SCH (08:58)
[2021-04-17] MEDS ORDERED: ZOLPIDEM 5 MG TABLET. PO PRN (09:00)
[2021-04-17] MEDS: NON FORMULARY ITEM (Liraglutide (Victoza 2-Pak) 0.6 MG) SQ SCH (09:00)
[2021-04-17] MEDS ORDERED: ACETAMINOPHEN 325 MG TABLET PO ONE (11:48)
--- NOTE | 2021-04-17 13:21 | PN ---
SUBJECTIVE: A 60-year-old gentleman in with COVID-19 pneumonia and respiratory failure. He is in the ICU. The patient continues on IV antibiotic therapy. We will switch him over from Decadron to Solu-Medrol as the patient's sugars are becoming out of control. He had to go back on IV insulin drip to bring it down under reasonable level. Otherwise, the patient says he is feeling better. No complaints. OBJECTIVE: VITAL SIGNS: Blood pressure 123/60, respiratory rate 20, pulse 60, afebrile, 4 liters at 97. GENERAL: The patient is alert and oriented. Speech fluent, spontaneous, appropriate. LUNGS: Diminished, some crackles in the bases, but otherwise clearer than they have been. CARDIOVASCULAR: The CVR exam was regular sinus rhythm. ABDOMEN: Soft, nontender, no rebound or guarding. Positive bowel sounds. No hepatosplenomegaly noted. NEUROLOGICALLY: As noted, alert and oriented and having better affect overall. IMPRESSION: Acute respiratory failure secondary to COVID-19. COVID-19 pneumonia; type 2 diabetes with severe hyperglycemia, poorly controlled; morbid obesity. PLAN: We will go ahead and continue on IV antibiotic therapy for now, uncontrolled at blood sugar and make further evaluation once those are controlled. JESSICA DR: TAYLOR/fernandez TID: [id number]
[2021-04-17] MEDS ORDERED: ACETAMINOPHEN 325 MG TABLET PO PRN (13:30)
[2021-04-17] MEDS: REMDESIVIR 100mg in NORMAL SALINE 250ML X 4 DAYS IV SCH (13:45)
[2021-04-17] MEDS: methylPREDNISolone SOD SUCC PF 40 MG/ML VIAL. IV SCH (21:09)
[2021-04-17] MEDS: ENOXAPARIN 40 MG/0.4 ML SYRINGE. SQ SCH (21:10)
[2021-04-17] MEDS ORDERED: DEXTROSE 50% 25 GM / 50ML DISP.SYRIN. IV PRN (21:45)
[2021-04-17] MEDS: INSULIN LISPRO 300 UNITS/3 ML VIAL. SQ SCH ×2 (22:00→23:20)
[2021-04-17] MEDS: INSULIN GLARGINE SYRINGE. SQ SCH (22:20)
[2021-04-18] VITALS (16 sets, daily range): BP systolic 87–124; BP diastolic 47–77
[2021-04-18] MEDS: INSULIN LISPRO 300 UNITS/3 ML VIAL. SQ SCH ×15 (00:01→21:01)
--- NOTE | 2021-04-18 04:50 | NUR ---
Nursing note: Pt reported decreased coughing this shift. BGL at 2117 was 100; spoke to Dr. Chapman regarding d/c of the insulin gtt. Insulin gtt d/c, covering with sliding scale plus 10u as well as 10u lantus BID.
[2021-04-18 07:43] LABS: CALCIUM 8.3 mg/dL (8.5-10.1); CREATININE 0.9 mg/dL (0.7-1.3); GFR 86.4; POTASSIUM 3.7 mmol/L (3.5-5.1)
[2021-04-18] MEDS: LACTOBACILLUS RHAMNOSUS GG 1 CAPSULE. PO SCH ×2 (08:34→21:02)
[2021-04-18] MEDS: IPRATROPIUM/ALBUTEROL 20/100mcg/INH INHALER. INH SCH ×4 (08:34→20:59)
[2021-04-18] MEDS: CHOLECALCIFEROL (VITAMIN D3) 1,000 UNIT TABLET PO SCH (08:34)
[2021-04-18] MEDS: methylPREDNISolone SOD SUCC PF 40 MG/ML VIAL. IV SCH (08:34)
[2021-04-18] MEDS: MONTELUKAST 10 MG TABLET. PO SCH (08:35)
[2021-04-18] MEDS: MECLIZINE 12.5 MG TABLET. PO SCH ×3 (08:35→21:02)
[2021-04-18] MEDS: POTASSIUM CHLORIDE 20 MEQ TABLET.ER. PO SCH ×2 (08:35→21:02)
[2021-04-18] MEDS: MULTIVITAMIN with MINERAL TABLET. PO SCH (08:35)
[2021-04-18] MEDS: BENZONATATE 100 MG CAPSULE. PO SCH ×3 (08:35→21:02)
[2021-04-18] MEDS: LISINOPRIL 20 MG TABLET PO SCH (08:36)
[2021-04-18] MEDS: FUROSEMIDE 40 MG TABLET PO SCH (08:36)
[2021-04-18] MEDS: MELOXICAM 15 MG TABLET. PO SCH (08:37)
[2021-04-18] MEDS: FENOFIBRATE NANOCRYSTALLIZED 48 MG TABLET PO SCH (08:37)
[2021-04-18] MEDS: DICLOFENAC SODIUM 25 MG TABLET.DR PO SCH (08:37)
[2021-04-18] MEDS: ENOXAPARIN 40 MG/0.4 ML SYRINGE. SQ SCH ×2 (08:40→21:00)
[2021-04-18] MEDS: INSULIN GLARGINE SYRINGE. SQ SCH ×3 (10:49→21:01)
[2021-04-18] MEDS ORDERED: DEXTROSE 50% 25 GM / 50ML DISP.SYRIN. IV PRN (11:15)
[2021-04-18] MEDS: REMDESIVIR 100mg in NORMAL SALINE 250ML X 4 DAYS IV SCH (12:45)
[2021-04-18] MEDS ORDERED: INSULIN GLARGINE SYRINGE. SQ SCH (21:00)
--- NOTE | 2021-04-19 00:29 | PN ---
DATE: 04/18/2021 SUBJECTIVE: This is a 60-year-old gentleman in with COVID-19 pneumonia and respiratory failure. The patient had severe hyperglycemia even before he was admitted, sugars were in 500s and while he is on the steroids, tapering him down on those. The patient has required either IV insulin continuous or intermittent boluses trying to cut down on his shots and is sticking his fingers as he is becoming very upset with that. OBJECTIVE: VITAL SIGNS: Blood pressure 120/72, respiratory rate 20, pulse 92, afebrile. Oxygen sat on 4 liters 97. GENERAL: The patient otherwise is alert and oriented, seems to be in good spirits, feels better overall. LUNGS: Diminished but basically clearer than they have been. CARDIOVASCULAR: Regular sinus rhythm. ABDOMEN: Protuberant, soft. EXTREMITIES: No clubbing, cyanosis or edema. NEUROLOGIC: The patient alert and oriented. PLAN: The patient otherwise continued to be monitored carefully, make further evaluation on him as indicated. Continue with IV antibiotic therapy, tapering down on to oral steroids now and monitoring blood sugars and becomes a very critical part of him feeling better overall. TEODORO DR: Mayda TID: [id number]
[2021-04-19 07:00] VITALS: BP 101/65
[2021-04-19] MEDS: IPRATROPIUM/ALBUTEROL 20/100mcg/INH INHALER. INH SCH ×4 (08:00→20:29)
[2021-04-19] MEDS: CHOLECALCIFEROL (VITAMIN D3) 1,000 UNIT TABLET PO SCH (08:52)
[2021-04-19] MEDS: ENOXAPARIN 40 MG/0.4 ML SYRINGE. SQ SCH ×2 (08:52→20:08)
[2021-04-19] MEDS: LACTOBACILLUS RHAMNOSUS GG 1 CAPSULE. PO SCH ×2 (08:53→20:08)
[2021-04-19] MEDS: MECLIZINE 12.5 MG TABLET. PO SCH ×3 (08:53→20:08)
[2021-04-19] MEDS: POTASSIUM CHLORIDE 20 MEQ TABLET.ER. PO SCH ×2 (08:53→20:08)
[2021-04-19] MEDS: predniSONE 10 MG TABLET. PO SCH (08:53)
[2021-04-19] MEDS: BENZONATATE 100 MG CAPSULE. PO SCH ×3 (08:53→20:09)
[2021-04-19] MEDS: MONTELUKAST 10 MG TABLET. PO SCH (08:53)
[2021-04-19] MEDS: LISINOPRIL 20 MG TABLET PO SCH (08:54)
[2021-04-19] MEDS: FENOFIBRATE NANOCRYSTALLIZED 48 MG TABLET PO SCH (08:54)
[2021-04-19] MEDS: MULTIVITAMIN with MINERAL TABLET. PO SCH (08:54)
[2021-04-19] MEDS: FUROSEMIDE 40 MG TABLET PO SCH (08:55)
[2021-04-19] MEDS: MELOXICAM 15 MG TABLET. PO SCH (08:55)
[2021-04-19] MEDS: INSULIN GLARGINE SYRINGE. SQ SCH ×2 (08:59→20:29)
[2021-04-19] MEDS: INSULIN LISPRO 300 UNITS/3 ML VIAL. SQ SCH ×7 (09:00→20:28)
[2021-04-19 11:33] VITALS: BP 134/81
[2021-04-19] MEDS: REMDESIVIR 100mg in NORMAL SALINE 250ML X 4 DAYS IV SCH (14:23)
[2021-04-19 15:43] VITALS: BP 120/82
[2021-04-19 20:30] VITALS: BP 116/74
[2021-04-20 00:21] VITALS: BP 111/67
--- NOTE | 2021-04-20 05:24 | NUR ---
Pt slept well overnight. Reports feeling much better overall. Pt still requiring supplemental O2 at 3L via NC to keep sats >92%. Pt completed course of Remdesivir yesterday afternoon and is hopeful to discharge home later today.
--- NOTE | 2021-04-20 06:06 | PN ---
SUBJECTIVE: A 60-year-old male with a history of COVID-19 pneumonia, respiratory failure and severe hyperglycemia, doing much better. He is in the ICU and continues to be monitored carefully with IV antibiotic therapy for his pneumonia as well as controlling his diabetes. We have tapered down on Solu-Medrol as he makes good progress with his oxygenation. For example, he is on 3 L at 97%. OBJECTIVE: VITAL SIGNS: Blood pressure 120/70, respiratory rate 18, pulse 60, he is afebrile. GENERAL: The patient otherwise alert and oriented. LUNGS: Diminished throughout, but basically clear. CARDIOVASCULAR: Stable. ABDOMEN: Soft, protuberant, nontender. EXTREMITIES: No clubbing, cyanosis, nor edema. NEUROLOGIC: He is very good. He is receiving remdesivir and as a result of this he will continue to be monitored and hopefully ready for discharge soon as the remdesivir protocol has been completed. IMPRESSION AND PLAN: Therefore of acute respiratory failure secondary to COVID-19 pneumonia, type 2 diabetes with severe hyperglycemia, poorly controlled, morbid obesity. Continue ____ progress and hopefully with successful completion of his remdesivir he will be ready for discharge home. Also severe protein malnutrition. TAYLOR/NATALIE/BLAISE DR: TAYLOR/fernandez TID: [id number]
[2021-04-20 07:35] VITALS: BP 109/76
[2021-04-20] MEDS: INSULIN LISPRO 300 UNITS/3 ML VIAL. SQ SCH ×2 (08:00→08:20)
[2021-04-20] MEDS: ENOXAPARIN 40 MG/0.4 ML SYRINGE. SQ SCH (08:17)
[2021-04-20] MEDS: MECLIZINE 12.5 MG TABLET. PO SCH (08:17)
[2021-04-20] MEDS: CHOLECALCIFEROL (VITAMIN D3) 1,000 UNIT TABLET PO SCH (08:17)
[2021-04-20] MEDS: BENZONATATE 100 MG CAPSULE. PO SCH (08:18)
[2021-04-20] MEDS: MULTIVITAMIN with MINERAL TABLET. PO SCH (08:18)
[2021-04-20] MEDS: predniSONE 10 MG TABLET. PO SCH (08:18)
[2021-04-20] MEDS: FENOFIBRATE NANOCRYSTALLIZED 48 MG TABLET PO SCH (08:18)
[2021-04-20] MEDS: MELOXICAM 15 MG TABLET. PO SCH (08:18)
[2021-04-20] MEDS: FUROSEMIDE 40 MG TABLET PO SCH (08:18)
[2021-04-20] MEDS: LACTOBACILLUS RHAMNOSUS GG 1 CAPSULE. PO SCH (08:18)
[2021-04-20] MEDS: MONTELUKAST 10 MG TABLET. PO SCH (08:18)
[2021-04-20 08:19] VITALS: BP 109/76
[2021-04-20] MEDS: IPRATROPIUM/ALBUTEROL 20/100mcg/INH INHALER. INH SCH (08:19)
[2021-04-20] MEDS: LISINOPRIL 20 MG TABLET PO SCH (08:19)
[2021-04-20] MEDS: POTASSIUM CHLORIDE 20 MEQ TABLET.ER. PO SCH (08:19)
[2021-04-20] MEDS: INSULIN GLARGINE SYRINGE. SQ SCH (08:43)
[2021-04-20] MEDS ORDERED: INSU100I11 SQ (11:34)
[2021-04-20] MEDS ORDERED: LEVO750T5 PO (11:34)
--- NOTE | 2021-04-20 12:37 | NUR ---
Pt discharge instructions reviewed with pt by NATHAN Walter. Discharge instructions, education materials and pt belongings all sent with pt. PIV and tele dc'd PTD. Pt wheeled out to car by NATHAN.
== END 2021-04-20 12:37 | disposition home or self-care (01) | DRG 177 ==
LOC: ER 06:53 → 1 SOUTH 10:03 → ER 10:09 → ICU 16:07
PROVIDERS: ADMIT Family Medicine; ATTEND Family Medicine
PROC: XW033E5 Introduction of Remdesivir Anti-infective into Peripheral Vein, Percutaneous Approach, New Technology Group 5 (ICD-10-PCS; 2021-04-15)
PROC: 5A0935A Assistance with Respiratory Ventilation, Less than 24 Consecutive Hours, High Flow/Velocity Cannula (ICD-10-PCS; principal; 2021-04-16)
DX: U07.1 COVID-19 (principal); J96.01 Acute respiratory failure with hypoxia; J12.82 Pneumonia due to coronavirus disease 2019; E43 Unspecified severe protein-calorie malnutrition; J44.0 Chronic obstructive pulmonary disease with (acute) lower respiratory infection; Z68.41 Body mass index [BMI] 40.0-44.9, adult; E78.00 Pure hypercholesterolemia, unspecified; I11.0 Hypertensive heart disease with heart failure; E11.65 Type 2 diabetes mellitus with hyperglycemia; E66.01 Morbid (severe) obesity due to excess calories; I50.9 Heart failure, unspecified; D69.6 Thrombocytopenia, unspecified; Z86.711 Personal history of pulmonary embolism; Z83.3 Family history of diabetes mellitus; Z82.5 Family history of asthma and other chronic lower respiratory diseases; Z81.1 Family history of alcohol abuse and dependence; Z80.1 Family history of malignant neoplasm of trachea, bronchus and lung; Z79.01 Long term (current) use of anticoagulants; Z86.718 Personal history of other venous thrombosis and embolism; Z88.8 Allergy status to other drugs, medicaments and biological substances
CPT/HCPCS: 36415; 71045; 71275; 80048; 80053; 81001; 82947; 83605; 83735; 83880; 84484; 85025; 85379; 87040; 93005; 94618; 96374; J0456; J0696; J1100; J1650; J1815; J1956; J2405; J2920; J7030; J7050; J7512; Q9967; 99285-25